=== PATIENT | male | born 1950 | race Caucasian/White ===

== ENCOUNTER → 2016-08-29 | Outpatient (CLI) | payer MEDICARE, OTHER ==
[~2016-08-29] MED LIST: CEPH250C PO; GLUCTAB OR; IBUP400T20 PO; IRBE150T49 PO
[2016-08-29 12:48] LABS: AUTOMATED NEUTROPHIL # 4.4 TH/MM3 (1.8-7.7); BASOPHIL % 0.7 % (0.0-2.0); EOSINOPHIL # 0.1 TH/MM3 (0-0.4); EOSINOPHIL % 1.9 % (0.0-4.0); HEMATOCRIT 40.9 % (39.0-51.0); HEMO FLAGS DIFF FINAL; LYMPHOCYTE # 1.6 TH/MM3 (1.0-4.8); MEAN CELL VOLUME 90.5 FL (80.0-100.0); MEAN CORPUSCULAR HEMOGLOBIN 30.6 PG (27.0-34.0); MEAN CORPUSCULAR HGB CONC 33.8 % (32.0-36.0); MONO % 5.9 % (0.0-8.0); NEUT % 67.5 % (16.0-70.0); PLATELET COUNT 240 TH/MM3 (150-450); RED BLOOD COUNT 4.52 MIL/MM3 (4.50-5.90); RED CELL DISTRIBUTION WIDTH 13.4 % (11.6-17.2); WHITE BLOOD COUNT 6.6 TH/MM3 (4.0-11.0)
[2016-08-29 13:09] LABS: ALT (GPT) 25 U/L (12-78); ANION GAP 8 MEQ/L (5-15); AST (GOT) 14 U/L (15-37); BICARBONATE 24.7 MEQ/L (21.0-32.0); BLOOD UREA NITROGEN 15 MG/DL (7-18); CHLORIDE 104 MEQ/L (98-107); GLOMERULAR FILTRATION RATE 77 ML/MIN (>89); GLUCOSE,FASTING 187 MG/DL (74-99); POTASSIUM 4.5 MEQ/L (3.5-5.1); SODIUM (NA) 137 MEQ/L (136-145)
[2016-08-29 13:19] LABS: ALKALINE PHOSPHATASE 89 U/L (45-117); HDL CHOLESTEROL 40.6 MG/DL (40.0-60.0); LDL CHOLESTEROL 116 MG/DL (0-99); TOTAL BILIRUBIN ADULT 0.8 MG/DL (0.2-1.0)
[2016-08-29 16:51] LABS: HEMOGLOBIN A1a 1.1 %; HEMOGLOBIN A1b 2.4 %; HEMOGLOBIN Ao 80.3 %; HEMOGLOBIN LA1C 2.9 %; HEMOGLOBIN P3 4.6 %
== END ==
LOC: PLAB 09:52
PROVIDERS: ATTEND Family Medicine
DX: E78.5 Hyperlipidemia, unspecified (principal); I10 Essential (primary) hypertension; E11.9 Type 2 diabetes mellitus without complications
CPT/HCPCS: 36415; 80053; 80061; 83036; 84443; 85025

== ENCOUNTER → 2016-12-04 | Outpatient (CLI) | payer MEDICARE, OTHER | LOC: PLAB 08:36 | PROVIDERS: ATTEND Urology | DX: R97.20 Elevated prostate specific antigen [PSA] (principal); E29.1 Testicular hypofunction | CPT/HCPCS: 36415; 84153; 84402; 84403; 85014 ==

== ENCOUNTER 2017-02-17 14:36 | Inpatient (IN) | payer MEDICARE, OTHER ==
[2017-02-17] VITALS (10 sets, daily range): BP systolic 124–171; BP diastolic 69–95; PULSE 58–104; RESP 16–20; TEMP 97.8–97.9; O2SAT 95–100
[2017-02-17] MEDS ORDERED: IRBE150T49 PO (14:49)
[2017-02-17] MEDS ORDERED: ASPI81CH37 CHEW (14:49)
[2017-02-17] MEDS ORDERED: GLIM4TAB PO (14:49)
[2017-02-17] MEDS ORDERED: METF500T PO (14:49)
--- NOTE | 2017-02-17 15:14 | PD ---
HPI Chief Complaint: Chest Pain Time Seen by Provider: 14:56 Travel History International Travel<30 days: No Contact w/Intl Traveler<30days: No Traveled to known affect area: No History of Present Illness HPI This 66-year-old male presents with complaint of chest pain and shortness of breath. He has noted gradually increasing shortness of breath over a period of several weeks. The past 2-3 days he has had several episodes of right-sided chest pain. He has not noted that the pain is pleuritic. It is fairly persistent at times. He says it lasted all night the other night. He had an episode earlier today that lasted a couple of hours. He was able to go to the gym and exercise He has not been coughing. He has no known history of heart disease. He does have hypertension and diabetes. He is on pravastatin. He has macular degeneration. He stopped smoking 7 or 8 years ago. He says he had a stress test several years ago which he believes was normal. He did have an ultrasound of his abdomen done recently which apparently have a spot on his liver. He has a history of hepatitis. PFSH Past Medical History High Cholesterol: Yes Diabetes: Yes (Type 2) Patient Takes Glucophage: Yes Hypertension: Yes Tetanus Vaccination: > 5 Years Influenza Vaccination: No Past Surgical History Appendectomy: Yes Oral Surgery: Yes Other Surgery: Yes (Hernia repair ) Social History Alcohol Use: Yes (5 days per week) Tobacco Use: No Substance Use: No Allergies-Medications (Allergen,Severity, Reaction): Coded Allergies: No Known Allergies (Verified , 02/17/17) Reported Meds & Prescriptions Reported Meds & Active Scripts Active Reported Aspirin Low Dose (Aspirin) 81 Mg Chew 81 Mg CHEW DAILY Glimepiride 4 Mg Tab 4 Mg PO BIDAC Metformin (Metformin HCl) 500 Mg Tab 750 Mg PO BIDPC With meals Avapro (Irbesartan) 150 Mg Tab 150 Mg PO DAILY Review of Systems General / Constitutional: No: Fever, Chills Eyes: No: Diploplia, Blurred Vision HENT: No: Headaches, Vertigo Cardiovascular: Positive: Chest Pain or Discomfort, Dyspnea on exertion, No: Palpitations, Irregular Rhythm, Edema Respiratory: Positive: Shortness of Breath, No: Cough, Wheezing, Hemoptysis Gastrointestinal: No: Vomiting, Diarrhea Genitourinary: No: Urgency, Frequency Musculoskeletal: No: Myalgias, Arthralgias Skin: No Rash, No Itching Neurologic: No: Weakness, Dizziness Hematologic/Lymphatic: No: Easy Bruising Physical Exam Narrative GENERAL: Well-developed male SKIN: Focused skin assessment warm/dry. HEAD: Atraumatic. Normocephalic. EYES: Pupils equal and round. No scleral icterus. No injection or drainage. ENT: No nasal bleeding or discharge. Mucous membranes pink and moist. NECK: Trachea midline. No JVD. CARDIOVASCULAR: Regular rate and rhythm. No murmur appreciated. RESPIRATORY: No accessory muscle use. There are diminished breath sounds in the right chest GASTROINTESTINAL: Abdomen soft, non-tender, nondistended. Hepatic and splenic margins not palpable. MUSCULOSKELETAL: No obvious deformities. No clubbing. No cyanosis. No edema. NEUROLOGICAL: Awake and alert. No obvious cranial nerve deficits. Motor grossly within normal limits. Normal speech. PSYCHIATRIC: Appropriate mood and affect; insight and judgment normal. Data Data Last Documented VS Vital Signs Date Time Temp Pulse Resp B/P Pulse Ox O2 Delivery O2 Flow Rate FiO2 02/17/17 15:50 76 16 132/69 99 Room Air 02/17/17 14:41 97.9 Orders Complete Blood Count With Diff (02/17/17 15:07) Comprehensive Metabolic Panel (02/17/17 15:07) Troponin I (02/17/17 15:07) B-Type Natriuretic Peptide (02/17/17 15:07) Prothrombin Time / Inr (Pt) (02/17/17 15:07) Act Partial Throm Time (Ptt) (02/17/17 15:07) Urinalysis - C+S If Indicated (02/17/17 15:07) Magnesium (Mg) (02/17/17 15:07) Chest, Single Ap (02/17/17 15:07) Ct Pulmonary Angiogram (02/17/17 15:43) Labs Laboratory Tests Test 02/17/17 15:00 White Blood Count 9.8 TH/MM3 Red Blood Count 5.17 MIL/MM3 Hemoglobin 15.3 GM/DL Hematocrit 45.7 % Mean Corpuscular Volume 88.4 FL Mean Corpuscular Hemoglobin 29.6 PG Mean Corpuscular Hemoglobin 33.5 % Concent Red Cell Distribution Width 12.6 % Platelet Count 239 TH/MM3 Mean Platelet Volume 9.2 FL Neutrophils (%) (Auto) 75.3 % Lymphocytes (%) (Auto) 16.9 % Monocytes (%) (Auto) 5.9 % Eosinophils (%) (Auto) 1.6 % Basophils (%) (Auto) 0.3 % Neutrophils # (Auto) 7.4 TH/MM3 Lymphocytes # (Auto) 1.6 TH/MM3 Monocytes # (Auto) 0.6 TH/MM3 Eosinophils # (Auto) 0.2 TH/MM3 Basophils # (Auto) 0.0 TH/MM3 CBC Comment DIFF FINAL Differential Comment Prothrombin Time 11.0 SEC Prothromb Time International 1.0 RATIO Ratio Activated Partial 29.1 SEC Thromboplast Time Sodium Level 137 MEQ/L Potassium Level 4.1 MEQ/L Chloride Level 103 MEQ/L Carbon Dioxide Level 23.5 MEQ/L Anion Gap 11 MEQ/L Blood Urea Nitrogen 20 MG/DL Creatinine 1.10 MG/DL Estimat Glomerular Filtration 67 ML/MIN Rate Random Glucose 243 MG/DL Calcium Level 9.1 MG/DL Magnesium Level 1.9 MG/DL Total Bilirubin 0.5 MG/DL Aspartate Amino Transf 45 U/L (AST/SGOT) Alanine Aminotransferase 36 U/L (ALT/SGPT) Alkaline Phosphatase 121 U/L Total Protein 7.4 GM/DL Albumin 3.8 GM/DL [facility] Medical Decision Making Medical Screen Exam Complete: Yes Emergency Medical Condition: Yes Medical Record Reviewed: Yes Differential Diagnosis Differential includes coronary artery disease, pleural effusion, pulmonary embolus Narrative Course EKG shows normal sinus rhythm. Chest x-rays read as normal. Patient is having right-sided chest pain and dyspnea. A CTA will be obtained to assess for possible pulmonary embolus. Diagnosis Primary Impression: Chest pain Qualified Code: R07.9 - Chest pain, unspecified type Rocky Finney MD Feb 17, 2017 15:14
[2017-02-17 15:30] LABS: AUTOMATED NEUTROPHIL # 7.4 TH/MM3 (1.8-7.7); BASOPHIL % 0.3 % (0.0-2.0); EOSINOPHIL # 0.2 TH/MM3 (0-0.4); EOSINOPHIL % 1.6 % (0.0-4.0); HEMATOCRIT 45.7 % (39.0-51.0); HEMO FLAGS DIFF FINAL; LYMPH % 16.9 % (9.0-44.0); LYMPHOCYTE # 1.6 TH/MM3 (1.0-4.8); MEAN CELL VOLUME 88.4 FL (80.0-100.0); MEAN CORPUSCULAR HEMOGLOBIN 29.6 PG (27.0-34.0); MEAN CORPUSCULAR HGB CONC 33.5 % (32.0-36.0); MONO % 5.9 % (0.0-8.0); NEUT % 75.3 % (16.0-70.0); PLATELET COUNT 239 TH/MM3 (150-450); RED BLOOD COUNT 5.17 MIL/MM3 (4.50-5.90); RED CELL DISTRIBUTION WIDTH 12.6 % (11.6-17.2); WHITE BLOOD COUNT 9.8 TH/MM3 (4.0-11.0)
--- NOTE | 2017-02-17 15:36 | RADRPT ---
EXAM DATE/TIME: 02/17/2017 15:16 [place] COMPARISON: No previous studies available for comparison. INDICATIONS : Chest pain. MEDICAL HISTORY : None. SURGICAL HISTORY : None. ENCOUNTER: Initial ACUITY: 2 weeks PAIN SCORE: 4/10 LOCATION: Right chest FINDINGS: A single view of the chest demonstrates the lungs to be symmetrically aerated without evidence of mas s, infiltrate or effusion. The cardiomediastinal contours are unremarkable. Osseous structures are intact. CONCLUSION: 1. No acute cardiopulmonary disease. Sonido Zapata MD on February 17, 2017 at 15:35 Board Certified Radiologist. This report was verified electronically.
[2017-02-17 15:48] LABS: CHLORIDE 103 MEQ/L (98-107); POTASSIUM 4.1 MEQ/L (3.5-5.1); SODIUM (NA) 137 MEQ/L (136-145)
[2017-02-17 15:52] LABS: ANION GAP 11 MEQ/L (5-15); APTT (PATIENT) 29.1 SEC (24.3-30.1); BICARBONATE 23.5 MEQ/L (21.0-32.0); BLOOD UREA NITROGEN 20 MG/DL (7-18); MAGNESIUM 1.9 MG/DL (1.5-2.5)
[2017-02-17 15:55] LABS: ALT (GPT) 36 U/L (12-78); AST (GOT) 45 U/L (15-37); GLOMERULAR FILTRATION RATE 67 ML/MIN (>89)
[2017-02-17 15:57] LABS: TOTAL BILIRUBIN ADULT 0.5 MG/DL (0.2-1.0)
[2017-02-17 15:58] LABS: ALKALINE PHOSPHATASE 121 U/L (45-117)
[2017-02-17 16:05] LABS: BLOOD, URINE NEG (NEG); GLUCOSE,URINE NEG (NEG); KETONE, URINE 40 mg/dL (NEG); NITRITE,URINE NEG (NEG); PH, URINE 5.5 (5.0-8.5)
[2017-02-17] MEDS ORDERED: NITROGLYCERIN 2% OINT 1 GM PACKET TOPICAL ONE (16:15)
[2017-02-17] MEDS ORDERED: ASPIRIN 81 MG CHEW TAB CHEW ONE ×3 (16:15→16:45)
[2017-02-17 16:19] LABS: URINE COLOR YELLOW (YELLW/STRAW)
--- NOTE | 2017-02-17 16:19 | PD ---
Physical Exam Date Seen by Provider: Feb 17, 2017 Narrative Care was assumed from Dr. Elizondo at 4 PM. The patient presented with chest pain and shortness of breath. The patient reports increasing shortness of breath for the last several weeks. He reports stuttering chest pain for the last 3 days. His worst chest pain was actually 2 nights ago. It kept him up all night. He went to the [facility] today and developed chest pain following exercise at the . He subsequently presented to us for further evaluation. He is having no pain at present. Data Data Last Documented VS Vital Signs Date Time Temp Pulse Resp B/P Pulse Ox O2 Delivery O2 Flow Rate FiO2 02/17/17 15:50 76 16 132/69 99 Room Air 02/17/17 14:41 97.9 Orders Complete Blood Count With Diff (02/17/17 15:07) Comprehensive Metabolic Panel (02/17/17 15:07) Troponin I (02/17/17 15:07) B-Type Natriuretic Peptide (02/17/17 15:07) Prothrombin Time / Inr (Pt) (02/17/17 15:07) Act Partial Throm Time (Ptt) (02/17/17 15:07) Urinalysis - C+S If Indicated (02/17/17 15:07) Magnesium (Mg) (02/17/17 15:07) Chest, Single Ap (02/17/17 15:07) Aspirin Chew (Aspirin Chew) (02/17/17 16:15) Nitroglycerin 2% Oint (Nitroglycerin 2% (02/17/17 16:15) Admit To Inpatient (02/17/17 ) Ckmb (Isoenzyme) Profile (02/17/17 16:31) Ckmb (Isoenzyme) Profile (02/17/17 22:31) Ckmb (Isoenzyme) Profile (02/18/17 04:31) Troponin I (02/17/17 16:31) Troponin I (02/17/17 22:31) Troponin I (02/18/17 04:31) Diet Npo Except Meds (02/17/17 Dinner) Resp Oxygen Nasal Cannula (02/17/17 ) Sodium Chloride 0.9% Flush (Ns Flush) (02/17/17 21:00) Sodium Chloride 0.9% Flush (Ns Flush) (02/17/17 16:45) Aspirin Ec (Ecotrin Ec) (02/18/17 09:00) Nitroglycerin Sl (Nitrostat Sl) (02/17/17 16:45) Acetaminophen (Tylenol) (02/17/17 16:45) Ondansetron Inj (Zofran Inj) (02/17/17 16:45) Vital Signs (Adult) ANSELMO.Q4H (02/17/17 16:31) Consult Cardiology (02/17/17 ) Garden Equipment Mechanic / Telemetry ANSELMO.Q8H (02/17/17 16:31) Metoprolol Tartrate (Lopressor) (02/17/17 21:00) Heparin Infusion ANSELMO.Q1H (02/17/17 16:31) Heparin-D5w Inj (Heparin-D5w Inj) (02/17/17 16:45) Act Partial Throm Time (Ptt) (02/17/17 16:31) Cbc No Diff, Includes Plts (02/17/17 16:31) Cbc No Diff, Includes Plts (02/20/17 06:00) Act Partial Throm Time (Ptt) (02/17/17 23:31) Occult Blood (Hemoccult) Stool (02/17/17 16:31) Morphine Inj (Morphine Inj) (02/17/17 16:45) Urine Culture (02/17/17 15:20) Pill Splitter (Pill Splitter) (02/17/17 16:45) Admit Order (Ed Use Only) (02/17/17 16:42) Aspirin Chew (Aspirin Chew) (02/17/17 16:45) Aspirin Chew (Aspirin Chew) (02/17/17 16:45) Labs Laboratory Tests Test 02/17/17 02/17/17 15:00 15:20 White Blood Count 9.8 TH/MM3 Red Blood Count 5.17 MIL/MM3 Hemoglobin 15.3 GM/DL Hematocrit 45.7 % Mean Corpuscular Volume 88.4 FL Mean Corpuscular Hemoglobin 29.6 PG Mean Corpuscular Hemoglobin 33.5 % Concent Red Cell Distribution Width 12.6 % Platelet Count 239 TH/MM3 Mean Platelet Volume 9.2 FL Neutrophils (%) (Auto) 75.3 % Lymphocytes (%) (Auto) 16.9 % Monocytes (%) (Auto) 5.9 % Eosinophils (%) (Auto) 1.6 % Basophils (%) (Auto) 0.3 % Neutrophils # (Auto) 7.4 TH/MM3 Lymphocytes # (Auto) 1.6 TH/MM3 Monocytes # (Auto) 0.6 TH/MM3 Eosinophils # (Auto) 0.2 TH/MM3 Basophils # (Auto) 0.0 TH/MM3 CBC Comment DIFF FINAL Differential Comment Prothrombin Time 11.0 SEC Prothromb Time International 1.0 RATIO Ratio Activated Partial 29.1 SEC Thromboplast Time Sodium Level 137 MEQ/L Potassium Level 4.1 MEQ/L Chloride Level 103 MEQ/L Carbon Dioxide Level 23.5 MEQ/L Anion Gap 11 MEQ/L Blood Urea Nitrogen 20 MG/DL Creatinine 1.10 MG/DL Estimat Glomerular Filtration 67 ML/MIN Rate Random Glucose 243 MG/DL Calcium Level 9.1 MG/DL Magnesium Level 1.9 MG/DL Total Bilirubin 0.5 MG/DL Aspartate Amino Transf 45 U/L (AST/SGOT) Alanine Aminotransferase 36 U/L (ALT/SGPT) Alkaline Phosphatase 121 U/L Troponin I 3.14 NG/ML Total Protein 7.4 GM/DL Albumin 3.8 GM/DL Urine Color YELLOW Urine Turbidity CLEAR Urine pH 5.5 Urine Specific [place] GREATER THAN 1.035 Urine Protein 30 mg/dL Urine Glucose (UA) NEG mg/dL Urine Ketones 40 mg/dL Urine Occult Blood NEG Urine Nitrite NEG Urine Bilirubin NEG Urine Leukocyte Esterase SMALL Urine WBC 25-49 /hpf Urine Squamous Epithelial 0-5 /hpf Cells Urine Calcium Oxalate Crystals FEW /hpf Urine Amorphous Sediment FEW Urine Bacteria RARE /hpf Urine Mucus FEW /lpf Microscopic Urinalysis Comment CULTURE INDICATED MDM Supervised Visit with DAYANARA: No Narrative Course CBC & BMP Diagram 02/17/17 15:00 Last Impressions Chest X-Ray 02/17/17 1507 Signed Impressions: Service Date/Time: Friday, February 17, 2017 15:16 - CONCLUSION: 1. No acute cardiopulmonary disease. Sonido Zapata MD Troponin is 3.14. Cardiology has now been consult. I have ordered aspirin and Nitropaste. I have not yet ordered anticoagulation pending discussion with cardiology. The patient and his are aware of the findings. He is aware of the knee for transfer to [facility]. Critical Care Narrative Aggregate critical care time was 30 minutes. Time to perform other separately billable procedures was not included in the critical care time. My time did not include minutes spent treating any other patients simultaneously or on activities that did not directly contribute to the patient's treatment. The services I provided to this patient were to treat and/or prevent clinically significant deterioration due to NSTEMI I provided critical care services requiring my management, as noted below: Chart data review, documentation time, medication orders and management, vital sign assessments/reviewing monitor data, ordering and reviewing lab tests, ordering and interpreting/reviewing x-rays and diagnostic studies, care of the patient and discussion of the patient with the admitting physicians Physician Communication Physician Communication Dr. So will admit the patient. Dr. Carcamo, cardiology, has asked that I start heparin and metoprolol. Dr. So is actually already ordered that. The patient will be transported to [facility] to the [facility]. Diagnosis Primary Impression: Chest pain Qualified Code: R07.9 - Chest pain, unspecified type Additional Impression: NSTEMI (non-ST elevated myocardial infarction) Admitting Information Admitting Physician Requests: Admit Condition: Stable Aimee Rogers MD Feb 17, 2017 16:19
[2017-02-17 16:38] LABS: MUCUS URINE FEW /lpf (OCC)
[2017-02-17 16:39] LABS: BACTERIA, URINE RARE /hpf; CALCIUM OXALATE CRYSTALS,URINE FEW /hpf; SQUAMOUS EPITHELIAL CELL URINE 0-5 /hpf (0-5)
[2017-02-17 16:40] LABS: COMMENT (UR) CULTURE INDICATED; CULTURE IF INDICATED CULTURE INDICATED
[2017-02-17] MEDS ORDERED: ONDANSETRON HCL 4 MG/2 ML VIAL IV PRN (16:45)
[2017-02-17] MEDS ORDERED: ACETAMINOPHEN 325 MG TAB PO PRN (16:45)
[2017-02-17] MEDS ORDERED: MORPHINE SULFATE 8 MG/ML INJ IV PUSH PRN (16:45)
[2017-02-17] MEDS ORDERED: NITROGLYCERIN 0.4 MG SL 25 TABS/BTL SL PRN (16:45)
[2017-02-17] MEDS ORDERED: SODIUM CHLORIDE 0.9% FLUSH 10 ML FLUSH IV FLUSH PRN (16:45)
[2017-02-17] MEDS ORDERED: PILL SPLITTER OTHER PRN (16:45)
[2017-02-17] MEDS: HEPARIN-D5W INJ 250 ML IV SCH (16:55)
[2017-02-17] MEDS ORDERED: GLUCAGON 1 MG/ML VIAL OTHER PRN (17:15)
[2017-02-17] MEDS ORDERED: DEXTROSE 50% IN WATER 50 ML VIAL(D50) IV PRN (17:15)
--- NOTE | 2017-02-17 17:19 | HHI.HP ---
[facility] Service [facility] Primary Care Physician Nikolas Petersen MD Admission Diagnosis NSTEMI Diagnoses: Chief Complaint: Chest pain Travel History International Travel<30 Days: No Contact w/Intl Traveler <30 Da: No Traveled to Known Affected Are: No History of Present Illness This patient is a 89-year-old gentleman who admits just under week increased dyspnea on exertion and shortness of breath and 2-3 days of increasing right sided chest pain which was severe today. Patient said these symptoms subsided with rest. He went to the gym today and try to do his usual routine and had reoccurrence of chest pain. Patient did come to the emergency room for further evaluation (after his primary doctor referred him) and was found to have elevated troponins without EKG changes consistent with ischemia. Patient's pain has resolved with aspirin and Nitropaste. Patient normally takes a baby aspirin every day. He has been admitted to the medical team for further evaluation by cardiology for non-ST elevation FL Review of Systems Constitutional: DENIES: Diaphoretic episodes, Fatigue, Fever, Weight gain, Weight loss, Chills, Dizziness, Change in appetite, Night Sweats Endocrine: DENIES: Heat/cold intolerance, Polydipsia, Polyuria, Polyphagia Eyes: DENIES: Blurred vision, Diplopia, Eye inflammation, Eye pain, Vision loss , Photosensitivity, Double Vision Ears, nose, mouth, throat: DENIES: Tinnitus, Hearing loss, Vertigo, Nasal discharge, Oral lesions, Throat pain, Hoarseness, Ear Pain, Running Nose, Epistaxis, Sinus Pain, Toothache, Odynophagia Respiratory: COMPLAINS OF: Shortness of breath, DENIES: Apneas, Cough, Snoring , Wheezing, Hemoptysis, Sputum production Cardiovascular: COMPLAINS OF: Chest pain, Dyspnea on Exertion Gastrointestinal: DENIES: Abdominal pain, Black stools, Bloody stools, Constipation, Diarrhea, Nausea, Vomiting, Difficulty Swallowing, Anorexia Genitourinary: DENIES: Sexual dysfunction, Urinary frequency, Urinary incontinence, Urgency, Hematuria, Dysuria, Nocturia, Penile Discharge, Testicular Pain, Testicular Swelling Musculoskeletal: DENIES: Joint pain, Muscle aches, Stiffness, Joint Swelling, Back pain, Neck pain Integumentary: DENIES: Abnormal pigmentation, Nail changes, Pruritus, Rash Hematologic/lymphatic: DENIES: Bruising, Lymphadenopathy Immunologic/allergic: DENIES: Eczema, Urticaria Neurologic: DENIES: Abnormal gait, Headache, Localized weakness, Paresthesias, Seizures, Speech Problems, Tremor, Poor Balance Psychiatric: DENIES: Anxiety, Confusion, Mood changes, Depression, Hallucinations, Agitation, Suicidal Ideation, Homicidal Ideation, Delusions Past Family Social History Past Medical History Diabetes Hypertension Past Surgical History Hernia repair Appendectomy Reported Medications Reviewed in the medical record Allergies: Coded Allergies: No Known Allergies (Verified , 02/17/17) Active Ordered Medications Reviewed in the medical record Family History Father may have had heart disease Social History No tobacco dependency, , lives with his Physical Exam Vital Signs Vital Signs Date Time Temp Pulse Resp B/P Pulse Ox O2 Delivery O2 Flow Rate FiO2 02/17/17 15:50 76 16 132/69 99 Room Air 02/17/17 14:50 82 18 96 Room Air 02/17/17 14:41 97.9 93 20 142/86 96 Physical Exam GENERAL: This is a well-nourished, well-developed patient, in no apparent distress. SKIN: No rashes, ecchymoses or lesions. Cool and dry. HEAD: Atraumatic. Normocephalic. No temporal or scalp tenderness. EYES: Pupils equal round and reactive. Extraocular motions intact. No scleral icterus. No injection or drainage. ENT: Nose without bleeding, purulent drainage or septal hematoma. Throat without erythema, tonsillar hypertrophy or exudate. Uvula midline. Airway patent. NECK: Trachea midline. No JVD or lymphadenopathy. Supple, nontender, no meningeal signs. CARDIOVASCULAR: Regular rate and rhythm without murmurs, gallops, or rubs. RESPIRATORY: Clear to auscultation. Breath sounds equal bilaterally. No wheezes , rales, or rhonchi. GASTROINTESTINAL: Abdomen soft, non-tender, nondistended. No hepato-splenomegaly , or palpable masses. No guarding. MUSCULOSKELETAL: Extremities without clubbing, cyanosis, or edema. No joint tenderness, effusion, or edema noted. No calf tenderness. Negative Homans sign bilaterally. NEUROLOGICAL: Awake and alert. Cranial nerves II through XII intact. Motor and sensory grossly within normal limits. Five out of 5 muscle strength in all muscle groups. Normal speech. Laboratory Laboratory Tests Test 02/17/17 02/17/17 15:00 15:20 White Blood Count 9.8 Red Blood Count 5.17 Hemoglobin 15.3 Hematocrit 45.7 Mean Corpuscular Volume 88.4 Mean Corpuscular Hemoglobin 29.6 Mean Corpuscular Hemoglobin 33.5 Concent Red Cell Distribution Width 12.6 Platelet Count 239 Mean Platelet Volume 9.2 Neutrophils (%) (Auto) 75.3 Lymphocytes (%) (Auto) 16.9 Monocytes (%) (Auto) 5.9 Eosinophils (%) (Auto) 1.6 Basophils (%) (Auto) 0.3 Neutrophils # (Auto) 7.4 Lymphocytes # (Auto) 1.6 Monocytes # (Auto) 0.6 Eosinophils # (Auto) 0.2 Basophils # (Auto) 0.0 CBC Comment DIFF FINAL Differential Comment Prothrombin Time 11.0 Prothromb Time International 1.0 Ratio Activated Partial 29.1 Thromboplast Time Sodium Level 137 Potassium Level 4.1 Chloride Level 103 Carbon Dioxide Level 23.5 Anion Gap 11 Blood Urea Nitrogen 20 Creatinine 1.10 Estimat Glomerular Filtration 67 Rate Random Glucose 243 Calcium Level 9.1 Magnesium Level 1.9 Total Bilirubin 0.5 Aspartate Amino Transf 45 (AST/SGOT) Alanine Aminotransferase 36 (ALT/SGPT) Alkaline Phosphatase 121 Troponin I 3.14 Total Protein 7.4 Albumin 3.8 Urine Color YELLOW Urine Turbidity CLEAR Urine pH 5.5 Urine Specific [place] GREATER THAN 1.035 Urine Protein 30 Urine Glucose (UA) NEG Urine Ketones 40 Urine Occult Blood NEG Urine Nitrite NEG Urine Bilirubin NEG Urine Leukocyte Esterase SMALL Urine WBC 25-49 Urine Squamous Epithelial 0-5 Cells Urine Calcium Oxalate Crystals FEW Urine Amorphous Sediment FEW Urine Bacteria RARE Urine Mucus FEW Microscopic Urinalysis Comment CULTURE INDICATED Date/Time Procedure Status Source Growth 02/17/17 15:20 Urine Culture Received Urine Clean Catch Pending Result Diagram: 02/17/17 1500 02/17/17 1500 Imaging Last Impressions Chest X-Ray 02/17/17 1507 Signed Impressions: Service Date/Time: Friday, February 17, 2017 15:16 - CONCLUSION: 1. No acute cardiopulmonary disease. Sonido Zapata MD Assessment and Plan Problem List: (1) NSTEMI (non-ST elevated myocardial infarction) ICD Code: I21.4 Status: Acute Plan: Patient with risk factors including diabetes, age and possible family history. Continue with beta ming, heparin, nitroglycerin, oxygen, aspirin Patient will need cardiac catheterization Cardiology aware (2) DM2 (diabetes mellitus, type 2) ICD Code: E11.9 Status: Acute Plan: We'll hold metformin for now Continue with sliding scale insulin and ADA diet (3) HTN (hypertension) ICD Code: I10 Status: Acute Plan: Continue ARB, will follow while on additional beta ming Currently controlled Assessment and Plan Plan of care to be determined by Hospital course Code Status Full code Discussed Condition With Patient, ER M.D., spouse, emergency room RN Physician Certification 2 Midnight Certification Type: Admission for Inpatient Services Order for Inpatient Services The services are ordered in accordance with Medicare regulations or non- Medicare payer requirements, as applicable. In the case of services not specified as inpatient-only, they are appropriately provided as inpatient services in accordance with the 2-midnight benchmark. Estimated LOS (days): 3 3 days is the estimated time the patient will need to remain in the hospital, assuming treatment plan goals are met and no additional complications. Post-Hospital Plan: Jhoana Rogers MD Feb 17, 2017 17:19
[2017-02-17] MEDS: METOPROLOL TARTRATE 25 MG TAB PO SCH (21:14)
[2017-02-17] MEDS: SODIUM CHLORIDE 0.9% FLUSH 10 ML FLUSH IV FLUSH SCH (21:14)
[2017-02-17 22:05] LABS: HEMATOCRIT 42.2 % (39.0-51.0); MEAN CELL VOLUME 90.3 FL (80.0-100.0); MEAN CORPUSCULAR HEMOGLOBIN 30.4 PG (27.0-34.0); MEAN CORPUSCULAR HGB CONC 33.6 % (32.0-36.0); PLATELET COUNT 221 TH/MM3 (150-450); RED BLOOD COUNT 4.68 MIL/MM3 (4.50-5.90); RED CELL DISTRIBUTION WIDTH 13.2 % (11.6-17.2); REVIEW FLAG FINAL; WHITE BLOOD COUNT 8.4 TH/MM3 (4.0-11.0)
[2017-02-17 22:25] LABS: APTT (PATIENT) 31.8 SEC (24.3-30.1)
[2017-02-17 22:31] LABS: CREATINE KINASE 169 U/L (39-308)
[2017-02-17 22:50] LABS: CKMB 9.9 NG/ML (0.5-3.6)
[2017-02-18] VITALS (23 sets, daily range): BP systolic 102–156; BP diastolic 54–89; PULSE 53–90; RESP 16–18; TEMP 97–98; O2SAT 95–99
[2017-02-18 06:39] LABS: APTT (PATIENT) 33.4 SEC (24.3-30.1)
[2017-02-18 07:41] LABS: CREATINE KINASE 150 U/L (39-308)
[2017-02-18] MEDS: METOPROLOL TARTRATE 25 MG TAB PO SCH (08:55)
[2017-02-18] MEDS: SODIUM CHLORIDE 0.9% FLUSH 10 ML FLUSH IV FLUSH SCH (08:56)
[2017-02-18] MEDS ORDERED: ASPIRIN EC 325 MG TABEC PO SCH (09:00)
--- NOTE | 2017-02-18 10:51 | PD.PN.STU ---
Subjective Remarks Patient is a 66 year old male with hx of diabetes, hypertension, and 40pack/yr smoking, presenting 02/17 to [facility] with 3 day history of progressively worse vague exertional upper right chest pain accompanied with sob. Symptoms reolved with rest. EKG on presentation showed no evidence of STEMI; initial troponin notable for 3.14. nSTEMI criteria met, cardiac catheterization with possible intervention by Dr. Carcamo planned for today at 14:30. Patient does not note any pain currently. Objective Vitals Vital Signs Date Time Temp Pulse Resp B/P Pulse Ox O2 Delivery O2 Flow Rate FiO2 02/18/17 10:04 63 02/18/17 09:49 95 21 02/18/17 09:02 74 02/18/17 08:21 62 02/18/17 08:21 97.5 72 18 135/84 98 02/18/17 05:00 61 02/18/17 04:00 97.7 66 16 119/69 98 02/18/17 03:00 56 02/18/17 02:00 57 02/18/17 01:00 62 02/18/17 00:00 53 02/18/17 00:00 97.8 58 18 102/54 96 02/17/17 23:55 95 02/17/17 23:00 58 02/17/17 22:00 60 02/17/17 21:00 60 02/17/17 21:00 62 02/17/17 21:00 97.8 104 20 143/81 96 02/17/17 18:00 82 16 124/76 100 Room Air 02/17/17 17:30 85 16 140/72 99 Room Air 02/17/17 17:00 78 18 159/75 100 Room Air 02/17/17 16:30 74 16 171/95 98 Room Air 02/17/17 15:50 76 16 132/69 99 Room Air 02/17/17 14:50 82 18 96 Room Air 02/17/17 14:41 97.9 93 20 142/86 96 I/O 02/17/17 02/17/17 02/17/17 02/18/17 02/18/17 02/18/17 07:00 15:00 23:00 07:00 15:00 23:00 Intake Total 52 ml Balance 52 ml Intake Oral 0 ml IV Total 52 ml # Voids 1 # Bowel Movements 0 Result Diagram: 02/17/17 2126 02/17/17 1500 Other Results Laboratory Tests Test 02/17/17 02/17/17 02/17/17 02/18/17 15:00 15:20 21:26 04:50 White Blood Count 9.8 TH/MM3 8.4 TH/MM3 (4.0-11.0) (4.0-11.0) Red Blood Count 5.17 MIL/MM3 4.68 MIL/MM3 (4.50-5.90) (4.50-5.90) Hemoglobin 15.3 GM/DL 14.2 GM/DL (13.0-17.0) (13.0-17.0) Hematocrit 45.7 % 42.2 % (39.0-51.0) (39.0-51.0) Mean Corpuscular Volume 88.4 FL 90.3 FL (80.0-100.0) (80.0-100.0) Mean Corpuscular Hemoglobin 29.6 PG 30.4 PG (27.0-34.0) (27.0-34.0) Mean Corpuscular Hemoglobin 33.5 % 33.6 % Concent (32.0-36.0) (32.0-36.0) Red Cell Distribution Width 12.6 % 13.2 % (11.6-17.2) (11.6-17.2) Platelet Count 239 TH/MM3 221 TH/MM3 (150-450) (150-450) Mean Platelet Volume 9.2 FL 9.2 FL (7.0-11.0) (7.0-11.0) Neutrophils (%) (Auto) 75.3 % (16.0-70.0) Lymphocytes (%) (Auto) 16.9 % (9.0-44.0) Monocytes (%) (Auto) 5.9 % (0.0-8.0) Eosinophils (%) (Auto) 1.6 % (0.0-4.0) Basophils (%) (Auto) 0.3 % (0.0-2.0) Neutrophils # (Auto) 7.4 TH/MM3 (1.8-7.7) Lymphocytes # (Auto) 1.6 TH/MM3 (1.0-4.8) Monocytes # (Auto) 0.6 TH/MM3 (0-0.9) Eosinophils # (Auto) 0.2 TH/MM3 (0-0.4) Basophils # (Auto) 0.0 TH/MM3 (0-0.2) CBC Comment DIFF FINAL Differential Comment Prothrombin Time 11.0 SEC (9.8-11.6) Prothromb Time International 1.0 RATIO Ratio Activated Partial 29.1 SEC 31.8 SEC 33.4 SEC Thromboplast Time (24.3-30.1) (24.3-30.1) (24.3-30.1) Sodium Level 137 MEQ/L (136-145) Potassium Level 4.1 MEQ/L (3.5-5.1) Chloride Level 103 MEQ/L (98-107) Carbon Dioxide Level 23.5 MEQ/L (21.0-32.0) Anion Gap 11 MEQ/L (5-15) Blood Urea Nitrogen 20 MG/DL (7-18) Creatinine 1.10 MG/DL (0.60-1.30) Estimat Glomerular Filtration 67 ML/MIN (>89) Rate Random Glucose 243 MG/DL (74-106) Calcium Level 9.1 MG/DL (8.5-10.1) Magnesium Level 1.9 MG/DL (1.5-2.5) Total Bilirubin 0.5 MG/DL (0.2-1.0) Aspartate Amino Transf 45 U/L (15-37) (AST/SGOT) Alanine Aminotransferase 36 U/L (12-78) (ALT/SGPT) Alkaline Phosphatase 121 U/L (45-117) Troponin I 3.14 NG/ML 6.18 NG/ML 4.75 NG/ML (0.02-0.05) (0.02-0.05) (0.02-0.05) B-Type Natriuretic Peptide 88 PG/ML (0-100) Total Protein 7.4 GM/DL (6.4-8.2) Albumin 3.8 GM/DL (3.4-5.0) Urine Color YELLOW (YELLW/STRAW) Urine Turbidity CLEAR (CLEAR) Urine pH 5.5 (5.0-8.5) Urine Specific [place] GREATER THAN 1.035 (1.002-1.035) Urine Protein 30 mg/dL (NEG-TRACE) Urine Glucose (UA) NEG mg/dL (NEG) Urine Ketones 40 mg/dL (NEG) Urine Occult Blood NEG (NEG) Urine Nitrite NEG (NEG) Urine Bilirubin NEG (NEG) Urine Leukocyte Esterase SMALL (NEG) Urine WBC 25-49 /hpf (0-5) Urine Squamous Epithelial 0-5 /hpf (0-5) Cells Urine Calcium Oxalate Crystals FEW /hpf (NONE) Urine Amorphous Sediment FEW Urine Bacteria RARE /hpf (NONE) Urine Mucus FEW /lpf (OCC) Microscopic Urinalysis Comment CULTURE INDICATED Total Creatine Kinase 169 U/L 150 U/L (39-308) (39-308) Creatine Kinase MB 9.9 NG/ML 8.0 NG/ML (0.5-3.6) (0.5-3.6) Imaging Last 72 hours Impressions Chest X-Ray 02/17/17 1507 Signed Impressions: Service Date/Time: Friday, February 17, 2017 15:16 - CONCLUSION: 1. No acute cardiopulmonary disease. Sonido Zapata MD Objective Remarks Patient resting well RRR no rubs murmurs gallops Mild wheezing bilaterally Medications and IVs Current Medications Medications (Trade) Dose Ordered Sig/Mima Route PRN Reason Start Time Stop Time Status Last Admin Dose Admin Sodium Chloride (NS Flush) 2 ml BID IV FLUSH 02/17/17 21:00 02/18/17 08:56 Sodium Chloride (NS Flush) 2 ml UNSCH PRN IV FLUSH FLUSH AFTER USING IV ACCESS 02/17/17 16:45 Aspirin (Ecotrin Ec) 325 mg DAILY PO 02/18/17 09:00 02/18/17 08:54 Nitroglycerin (Nitrostat Sl) 0.4 mg Q5M PRN SL CHEST PAIN 02/17/17 16:45 Acetaminophen (Tylenol) 650 mg Q6H PRN PO HEADACHE OR TEMP > 101 F 02/17/17 16:45 Ondansetron HCl (Zofran Inj) 4 mg Q6H PRN IV NAUSEA OR VOMITING 02/17/17 16:45 Metoprolol Tartrate 12.5 mg 12.5 mg BID PO 02/17/17 21:00 02/18/17 08:55 Heparin Sodium/ Dextrose (Heparin-D5W Inj) 250 ml @ 0 mls/hr TITRATE IV 02/17/17 16:45 02/17/17 16:55 Morphine Sulfate (Morphine Inj) 6 mg Q4H PRN IV PUSH chest pain 02/17/17 16:45 Miscellaneous (Pill Splitter) 1 ea UNSCH PRN OTHER SEE LABEL COMMENTS 02/17/17 16:45 Dextrose (D50w (Vial) Inj) 50 ml UNSCH PRN IV HYPOGLYCEMIA-SEE COMMENTS 02/17/17 17:15 Glucagon (Glucagon Inj) 1 mg UNSCH PRN OTHER HYPOGLYCEMIA-SEE COMMENTS 02/17/17 17:15 A/P Assessment and Plan Problem List: (1) NSTEMI (non-ST elevated myocardial infarction) ICD Code: I21.4 Status: Acute Plan: Patient with risk factors including diabetes, age and possible family history. Continue with beta ming, heparin, nitroglycerin, oxygen, aspirin Patient planned for cardiac cath today at 14:[address] Carcamo (2) DM2 (diabetes mellitus, type 2) ICD Code: E11.9 Status: Acute Plan: Continue with sliding scale insulin and ADA diet (3) HTN (hypertension) ICD Code: I10 Status: Acute Plan: Continue ARB, will follow while on additional beta ming Currently controlled, will likely change pending cath outcome later today. Will speak with cardiology. Mary Rabago M3 Feb 18, 2017 10:51
--- NOTE | 2017-02-18 13:58 | HHI.PR ---
Subjective Remarks Patient seen in follow-up for NSTEMI currently denies any chest pain or shortness of breath. Awaiting heart catheterization. No nausea or vomiting. Objective Vitals Vital Signs Date Time Temp Pulse Resp B/P Pulse Ox O2 Delivery O2 Flow Rate FiO2 02/18/17 13:17 76 02/18/17 12:32 67 02/18/17 11:02 60 02/18/17 11:02 97.9 58 18 120/74 97 02/18/17 10:04 63 02/18/17 09:49 95 21 02/18/17 09:02 74 02/18/17 08:21 62 02/18/17 08:21 97.5 72 18 135/84 98 02/18/17 05:00 61 02/18/17 04:00 97.7 66 16 119/69 98 02/18/17 03:00 56 02/18/17 02:00 57 02/18/17 01:00 62 02/18/17 00:00 53 02/18/17 00:00 97.8 58 18 102/54 96 02/17/17 23:55 95 02/17/17 23:00 58 02/17/17 22:00 60 02/17/17 21:00 60 02/17/17 21:00 62 02/17/17 21:00 97.8 104 20 143/81 96 02/17/17 18:00 82 16 124/76 100 Room Air 02/17/17 17:30 85 16 140/72 99 Room Air 02/17/17 17:00 78 18 159/75 100 Room Air 02/17/17 16:30 74 16 171/95 98 Room Air 02/17/17 15:50 76 16 132/69 99 Room Air 02/17/17 14:50 82 18 96 Room Air 02/17/17 14:41 97.9 93 20 142/86 96 I/O 02/17/17 02/17/17 02/17/17 02/18/17 02/18/17 02/18/17 07:00 15:00 23:00 07:00 15:00 23:00 Intake Total 52 ml Balance 52 ml Intake Oral 0 ml IV Total 52 ml # Voids 1 # Bowel Movements 0 Result Diagram: 02/17/17212502/17/17 1500 Imaging Last Impressions Chest X-Ray 02/17/17 1507 Signed Impressions: Service Date/Time: Friday, February 17, 2017 15:16 - CONCLUSION: 1. No acute cardiopulmonary disease. Sonido Zapata MD Objective Remarks GENERAL: This is a well-nourished, well-developed patient, in no apparent distress. CARDIOVASCULAR: Normal rate and regular rhythm without murmurs, gallops, or rubs. RESPIRATORY: Good respiratory efforts. Breath sounds equal and clear to auscultation bilaterally. GASTROINTESTINAL: Abdomen soft, non-tender, non-distended. Normal active bowel sounds MUSCULOSKELETAL: Extremities without cyanosis, or edema. NEURO: Alert & Oriented x4 to person, place, time, situation. Moves all ext x4 PSYCH: Appropriate mood and affect. A/P Problem List: (1) NSTEMI (non-ST elevated myocardial infarction) ICD Code: I21.4 Status: Acute Plan: Heart catheterization scheduled today with Dr. Carcamo. Continue heparin, aspirin, Lopressor Check lipids. (2) DM2 (diabetes mellitus, type 2) ICD Code: E11.9 Status: Acute Plan: Continue to hold metformin for now Continue with sliding scale insulin and ADA diet (3) HTN (hypertension) ICD Code: I10 Status: Acute Plan: Continue ARB, will follow while on additional beta ming Currently controlled Brayden Domínguez MD Feb 18, 2017 13:58
[2017-02-18 14:55] LABS: APTT (PATIENT) 36.7 SEC (24.3-30.1)
[2017-02-18] MEDS ORDERED: IOHEXOL 350 MG/ML 100 ML BTL (for Cath Lab) OTHER ONE (15:08)
[2017-02-18] MEDS ORDERED: MIDAZOLAM HCL 2 MG/2 ML VIAL ONE (15:38)
[2017-02-18] MEDS ORDERED: HEPARIN-NS/PF INJ 500 ML ONE (15:38)
[2017-02-18] MEDS ORDERED: NITROGLYCERIN INJ 5 ML ONE (15:42)
[2017-02-18] MEDS: HEPARIN-D5W INJ 250 ML IV SCH (15:45)
[2017-02-18] MEDS ORDERED: MIDAZOLAM HCL 2 MG/2 ML VIAL IV ONE ×2 (16:20→16:31)
[2017-02-18] MEDS ORDERED: HEPARIN SODIUM - IV 10,000 UNITS/10 ML VIAL ONE ×2 (16:41→16:49)
[2017-02-18] MEDS ORDERED: HEPARIN SODIUM - IV 10,000 UNITS/10 ML VIAL IV ONE ×2 (16:45→17:00)
[2017-02-18] MEDS ORDERED: TIROFIBAN INFUSION INJ 250 ML IV ONE (17:54)
[2017-02-18] MEDS ORDERED: TIROFIBAN INFUSION INJ 250 ML IV SCH (18:00)
[2017-02-18] MEDS ORDERED: TIROFIBAN IV ONE (18:00)
[2017-02-18] MEDS ORDERED: TICAGRELOR 90 MG TAB PO ONE ×2 (18:05→18:11)
--- NOTE | 2017-02-18 18:57 | CATHPROC ---
[employer] HIS Report Study Information Study Number Admission Scheduled Start Study Start [id number] Feb 17 2017 4:45PM 02/18/2017 Feb 18 2017 4:01PM Study Type [place] Service Left/Possible PCI Cardiac Catheterization Admit Source Facility Department Emergency department [facility] - Welder Assistant Physician and Clinical Staff Initial Bassem [employer] Fabiola Beckham,BSRN Other Saul, Crystal,AERIAL PHOTOGRAPHER TECH2 Recorder Billie Goodrich,CONOR TECH2 Scrub Sho, Gustavo,RT(R) Procedures Performed Procedure Location (Site) Vessel Name Angiogram LV LV Ventricle Coronary Angiograms LCA Left Coronary Coronary Angiograms RCA Right Coronary Drug Eluting Inflatio CIRC Mid CIRC Drug Eluting Inflatio CIRC Prox CIRC Drug Eluting Inflatio RCA Mid Right Coronary PTCA RCA Right Coronary PTCA CIRC Mid CIRC PTCA PDA Prox Right Coronary PTCA RCA Mid Right Coronary Wire insertion Fem Art (right) Femoral Art Equipment Time Burr Sander Description Size Mfg Part Number Used/Scraped WIRE, BALANCE MIDDLEWEIGHT [id number] 16:47 [employer] 190CM Used 190CM *[id number] WIRE, WHISPER W/HYDROCOAT [id number] 17:24 [employer] 190CM Used 190CM *[id number] TRANSDUCER, TRUWAVE [id number] 16:03 NAVAS APONTE * Used W/STOCKCOCK *[id number] *[id number] [id number] *[id number] 534-520T *[id number] 534-552S *[id number] [id number] *2785937 [phone] *[id number] 18:13 [employer]IG[employer] ANGIOSEAL, FR6 VIP FR 6 Used *[id number] 16:03 MEDLINE INDUSTRIES PACK, CCL CUSTOM * Used *[id number] 16:03 MEDLINE PACER PEN, SKIN DUAL W/ RULER * Used *[id number] [id number] 16:55 MEDTRONIC BALLOON, 2.0 X 15MM EUPHORA 15MM Used *[id number] 17:08 MEDTRONIC BALLOON, 2.5 X 15MM EUPHORA 15MM Used *[id number] BALLOON, 2.75 X 15MM NC [id number] 17:31 MEDTRONIC 15MM Used EUPHORA *[id number] STENT, 2.5 22 RESOLUTE [id number] 18:00 MEDTRONIC 2.5 22 Used INTEGRITY RX *[id number] STENT, 2.75 12 RESOLUTE [id number] 18:08 MEDTRONIC 2.75 12 Used INTEGRITY RX *[id number] STENT, 2.75 30 RESOLUTE [id number] 17:16 MEDTRONIC 2.75 30 Used INTEGRITY RX *[id number] [id number] 17:01 [employer] MEDICAL 30 TALIA INDEFLATOR Used *6627859 [id number] 18:13 [employer] MEDICAL SHEATH, FR6.5 PRELUDE 11CM FR 6.5 038ACT Used *8592008 [id number] 16:03 [employer] WIRE, 3MMJ .035 180CM 180CM Used *8186183 PROBE COVER, STERILE [id number] 16:03 [employer] MEDICAL * Used ULTRASOUND W/ GEL *0800309 [id number] 16:03 NAMIC MANIFOLD, 4 PORT * Used *1733682 [id number] 16:03 NAMIC TUBING, HIGH PRESSURE 48" 48" Used *[id number] 16:03 [employer] OMNIPAQUE, 350 MG, 150ML 150ML [id number] Used 16:37 [employer] OMNIPAQUE, 350 MG, 50ML 50ML [id number] Used [id number] 16:03 [employer] MED[employer] BLANKET,WARM AIR CCL * Used *[id number] 16:03 [employer] MEDICAL SHEATH, FR5 TERUMO (10CM) FR 5 [id number] Used WIRE, RUNTHROUGH NS FLOPPY [id number] 17:48 [employer] MEDICAL 180CM Used .014 180CM *[id number] Equipment Model, Serial, Lot Number and Expiration Data Description Model Number Serial Number Lot Number Expiration Date ANGIOSEAL, FR6 [facility] [id number] 09-03-2017 STENT, 2.5 22 RESOLUTE [id number] 03-16-2018 INTEGRITY RX STENT, 2.75 12 RESOLUTE [id number] 12-11-2017 INTEGRITY RX STENT, 2.75 30 RESOLUTE [id number] 10-06-2018 INTEGRITY RX History: Allergies Allergy Reaction No Known Allergies History: Risk Factors Family History of Hypertension Dyslipidemia Previous LA Previous Heart Failure Premature CAD Yes Yes No Yes No Prior Valve Prior PCI Prior CABG Surgery No No No Cerebrovascular Peripheral Artery Chronic Lung On Dialysis Diabetes Diabetes Therapy Disease Disease Disease No No No No Yes Oral History: Symptoms/Diagnosis Selection Items Chest pain CARTER SOB History: Other Current Smoker Method Quit Packs a Day Years Used Pack Years No Cigarettes 8 Years Ago 1 30 30 Labs Hgb (g/dl) Hct (%) WBC (l/cumm) Platelets (thousands) 11.60-17.00 35.00-51.00 4.00-11.00 150.00-450.00 4.6 42.2 8.4 221 Glucose (mg/dl) BUN (mg/dl) Creatinine (mg/dl) BUN:Creatinine (1:x) 74.00-106.00 7.00-18.00 0.50-1.30 10.00-20.00 243 20 1.1 18.2 Na (meq/l) K (meq/l) 136.00-145.00 3.50-5.10 137 4.1 PT (sec) PTT (sec) INR (PTT:PT) 9.80-11.60 24.30-30.10 0.90-1.10 11 36.7 1 Troponin I (ng/ml) CPK (u/l) CPK-MB (ng/ML) 0.02-0.05 26.00-308.00 0.50-3.60 4.75 150 8.0 Medication Medication Total Dose (Bolus/Oral) Medication Total Dosage/Unit 1% XYLOCAINE 20 mL AGGRASTAT BOLUS 49.6 mL BRILLINTA 180 mg FENTANYL 75 mcg HEPARIN 05808 units NTG (IC) 600 mcg OXYGEN 2 l/min VERSED 2 mg Medications (Bolus/Oral) Medication Time Given Dosage/Unit Administered By Reason OXYGEN 02/18/2017 4:17:58 PM 2 l/min Fabiola Beckham 2 l/min OXYGEN given in lab by Fabiola Beckham BSRN via Nasal. VERSED 02/18/2017 4:20:51 PM 1 mg Fabiola Beckham 1 mg VERSED given in lab by Fabiola Beckham BSRN in Right Antecubital via Peripheral IV. Ordered by Bassem Carcamo. FENTANYL 02/18/2017 4:21:11 PM 25 mcg Rittenour, Fabiola 25 mcg FENTANYL given in lab by Fabiola Beckham BSRN in Right Antecubital via Peripheral IV. Ordere d by Bassem Carcamo. FENTANYL 02/18/2017 4:30:12 PM 25 mcg Rittenour, Fabiola 25 mcg FENTANYL given in lab by Fabiola Beckham BSRN in Right Antecubital via Peripheral IV. Ordere d by Bassem Carcamo. VERSED 02/18/2017 4:31:45 PM 1 mg Rittenjael, Fabiola 1 mg VERSED given in lab by Fabiola Beckham BSRN in Right Antecubital via Peripheral IV. Ordered by Bassem Carcamo. 1% XYLOCAINE 02/18/2017 4:32:26 PM 20 mL Bassem Carcamo 20 mL 1% XYLOCAINE given in lab by Bassem Carcamo in Right Groin via Subcutaneous. Ordered by Bassem Cardenas. FENTANYL 02/18/2017 4:32:40 PM 25 mcg Rittenour, Fabiola 25 mcg FENTANYL given in lab by Fabiola Beckham BSRN in Right Antecubital via Peripheral IV. Ordere d by Bassem Carcamo. HEPARIN 02/18/2017 4:45:24 PM 8000 units Fabiola Beckham As per physician s verbal order 8000 units HEPARIN given in lab by Fabiola Beckham BSRN in Right Antecubital via Peripheral IV. Ord ered by Bassem Carcamo. Reason: As per physicians verbal order. HEPARIN 02/18/2017 5:00:53 PM 2000 units Fabiola Beckham 2000 units HEPARIN given in lab by Fabiola Beckham BSRN in Right Antecubital via Peripheral IV. Ord ered by Bassem Carcamo. NTG (IC) 02/18/2017 5:11:02 PM 200 mcg Bassem Carcamo 200 mcg NTG (IC) given in lab by Bassem Carcamo via Intra-coronary. Ordered by Bassem Carcamo. NTG (IC) 02/18/2017 5:39:10 PM 200 mcg Bassem Carcamo 200 mcg NTG (IC) given in lab by Bassem Carcamo via Intra-coronary. Ordered by Bassem Carcamo. HEPARIN 02/18/2017 5:47:35 PM 2000 units Dolly Beckhamy 2000 units HEPARIN given in lab by Rittenour, Fabiola, BSRN in Right Antecubital via Peripheral IV. Ord ered by Bassem Carcamo. AGGRASTAT BOLUS 02/18/2017 5:58:05 PM 49.6 mL Fabiola Beckham As per physic ians verbal order 49.6 mL AGGRASTAT BOLUS given in lab by Fabiola Beckham BSRN in Right Antecubital via Peripheral IV . Ordered by Bassem Carcamo. Reason: As per physicians verbal order. NTG (IC) 02/18/2017 6:01:14 PM 200 mcg Bassem Carcamo 200 mcg NTG (IC) given in lab by Bassem Carcamo via Intra-coronary. Ordered by Bassem Carcamo. BRILLINTA 02/18/2017 6:11:11 PM 180 mg Fabiola Beckham 180 mg BRILLINTA given in lab by Fabiola Beckham BSRN in Per mouth via Oral. Ordered by Peter Carcamo. Medication (Drip) Medication Time Given Dosage/Unit Concentration/Unit Diluent (ml) Solutio n AGGRASTAT DRIP 02/18/2017 6:02:19 PM 0.151 mcg/kg/min 12.5 mg 250 NaCl .9 0.151 mcg/kg/min AGGRASTAT DRIP given in lab by Fabiola Beckham BSRN in Right Antecubital via Perip heral IV. Pump/Drip Flow = 17.9 ml/hr using NaCl .9 with a concentration of 12.5 mg in 250 ml. Ordered by Bassem Carcamo. Reason: As per sharon olivas verbal order. IV Solutions 02/18/2017 4:14:27 PM 0 mL (IV) 1000 NaCl .9 Patient arrived on IV Solutions in Right Antecubital via Peripheral IV. Pump/Drip Flow = 20 ml/hr usi ng NaCl .9. Initial Case Assessment Cardiovascular HR Rhythm NIBP Chest Pain 77 sr 136/79 1 Circulatory - Right Pulses Dorsalis Pedis Femoral 3 3 Scale (0,1,2,3,4,d) Circulatory - Left Pulses Dorsalis Pedis Femoral 3 3 Scale (0,1,2,3,4,d) Neurological State Oriented to time-place- Alert Moves all extremities person Respiration - General Respiration Rate SpO2 (%) (B/min) 10 95 Final Case Assessment Cardiovascular HR Rhythm NIBP Chest Pain 89 sr 173/90 1 Circulatory - Right Pulses Dorsalis Pedis Femoral 2 2 Scale (0,1,2,3,4,d) Circulatory - Left Pulses Dorsalis Pedis Femoral 2 2 Scale (0,1,2,3,4,d) Neurological State Oriented to time-place- Alert Moves all extremities person Respiration - General Respiration Rate SpO2 (%) (B/min) 18 97 Chronological Log Time Study Chronological Log 16:11:31 Patient arrived via Bed. 16:11:32 Patient Name, D.O.B, / Armband Verified By R.N. 16:11:37 MD arrived. 16:11:39 Consent signed by the physician and the patient and verified by the Welder Assistant staff. 16:11:41 Pre-op and post- op instructions given; patient acknowledges understanding of instructions. 16:11:42 Verbal Stimulation=2 Physical Stimulation=2 Airway=2 Respiration=2 TOTAL=8. (0=absent, 1=li mited, 2=present) 16:13:23 Presedation assessment performed by Welder Assistant RN. 16:13:29 Patient has been NPO for More than 6Hrs. 16:13:31 Skin Breakdown-none 16:13:32 Garrett Prominences Protected 16:13:43 A # 20 IV was noted in the Antecubital (left). Grade = patent 16:14:06 A # 20 IV was noted in the Antecubital (right). Grade = patent 16:14:27 Patient arrived on IV Solutions in Right Antecubital via Peripheral IV. Pump/Drip Flow = 20 ml/hr using NaCl .9. 16:15:00 History and physical on the chart or being dictated. Vitals capture started with the following parameters, Patient=Adult, Interval=5 min, Initial Pr xzthrh=940 mmHg, 16:16:48 Deflation Rate=5 mmHg Assessment: Initial Case, HR=77 BPM, Rhythm=sr, XJPX=078/79 mmhg, Chest Pain=1 Right Pulses: Ahsan Ped=3, Femoral=3 16:16:51 Left Pulses: Ahsan Ped=3, Femoral=3 Neurological: State=Alert, Ox3, PENA Respiration: Resp=10 B/min, SpO2=95 % 16:17:26 HR=75 bpm, DXKM=290/79 mmhg, SpO2=95 %, Resp=8 B/min, David=10 16:17:58 2 l/min OXYGEN given in lab by Fabiola Beckham BSRN via Nasal. 16:19:50 Bilateral groins prepped with 2% chlorhexidine, and draped after a 3 min. waiting time. 1 mg VERSED given in lab by Fabiola Beckham BSRN in Right Antecubital via Peripheral IV. Orde red by Dona, 16:20:51 Bassem. 25 mcg FENTANYL given in lab by Fabiola Beckham BSRN in Right Antecubital via Peripheral IV. Ordered by Dona, 16:21:11 Bassem. 16:22:23 HR=78 bpm, WIVE=893/87 mmhg, SpO2=96.0 %, Resp=12 B/min 16:24:14 Reference ECG taken 16:27:26 HR=76 bpm, YJXL=798/82 mmhg, SpO2=94.0 %, Resp=10 B/min 16:28:11 Pressure channel 1 zeroed. 25 mcg FENTANYL given in lab by Fabiola Beckham BSRN in Right Antecubital via Peripheral IV. Ordered by Dona, 16:30:12 Bassem. Time Out. Correct patient, correct procedure,correct physician, power injector loaded with cont rast with surgical team 16:31:37 present. Time Out Concurred by MD and individual staff in procedure 1 mg VERSED given in lab by Fbaiola Beckham BSRN in Right Antecubital via Peripheral IV. Orde red by Dona, 16:31:45 Bassem. 16:32:23 HR=82 bpm, DOPS=872/89 mmhg, SpO2=94.0 %, Resp=8 B/min 16:32:25 Case Start 16:32:26 20 mL 1% XYLOCAINE given in lab by Bassem Carcamo in Right Groin via Subcutaneous. Ordered by Bassem Carcamo. 25 mcg FENTANYL given in lab by Fabiola Beckham BSRN in Right Antecubital via Peripheral IV. Ordered by Dona, 16:32:40 Bassem. 16:34:02 Access site was Right Femoral Artery. 16:34:12 A SHEATH, FR5 TERUMO (10CM) FR 5 was advanced into the Fem Art (right) using the Percutaneo us technique. 16:34:24 Activated Clotting Time Drawn A PIGTAIL ANG. INFINITI CATHETER FR 5 was advanced over a wire. OMNIPAQUE, 350 MG, 50ML 50ML wa s used for 16:35:27 injections. Recorded Pressure: LV, HR=75, Condition=Condition 1 16:35:46 (Left Ventricle) LV 118/10/16 16:36:53 The LV was injected at 10 cc/sec for a total of 30. OMNIPAQUE, 350 MG, 50ML 50ML used. Recorded Pressure: LV, Ao, HR=77, Condition=Condition 1 16:37:21 (Left Ventricle) LV 116/9/15, (Aorta) Ao 125/70/93 16:37:26 HR=70 bpm, PBMT=706/79 mmhg, SpO2=94.0 %, Resp=15 B/min, Pain=0, David=10, Jean Baptiste=2 16:37:50 ACT (Normal Range 90-180) = 115 16:38:02 Catheter was removed A JL 4.0 INFINITI CATHETER FR 5 was advanced over a wire. OMNIPAQUE, 350 MG, 150ML 150ML was us ed for 16:38:03 injections. 16:39:12 The LCA was injected and visualized at various angles. OMNIPAQUE, 350 MG, 150ML 150ML used . 16:40:41 Catheter was removed A AR MOD INFINITI CATHETER FR 5 was advanced over a wire. OMNIPAQUE, 350 MG, 150ML 150ML was us ed for 16:40:43 injections. 16:41:22 The RCA was injected and visualized at various angles. OMNIPAQUE, 350 MG, 150ML 150ML used . 16:43:00 HR=91 bpm, GKMR=625/86 mmhg, SpO2=93.0 %, Resp=16 B/min 16:44:35 Catheter was removed 8000 units HEPARIN given in lab by Fabiola Beckham BSRN in Right Antecubital via Peripheral I V. Ordered by Dona, 16:45:24 Bassem. Reason: As per physicians verbal order. A SHEATH, FR6.5 PRELUDE 11CM FR 6.5 was exchanged in the Fem Art (right). This was necessary in order to 16:46:34 accomodate a larger catheter. 16:47:07 A AR 1 GUIDE CATHETER FR 6 was advanced over a wire. OMNIPAQUE, 350 MG, 150ML 150ML was use d for injections. 16:47:28 HR=83 bpm, WCMY=391/81 mmhg, SpO2=95.0 %, Resp=15 B/min 16:51:57 A WIRE, BALANCE MIDDLEWEIGHT 190CM 190CM was inserted via Fem Art (right). 16:52:25 HR=84 bpm, IGVO=760/81 mmhg, SpO2=95.0 %, Resp=17 B/min 16:52:33 Activated Clotting Time Drawn 16:53:49 A WIRE, ATW MARKER 195CM 195CM was inserted via Fem Art (right). 16:57:26 HR=78 bpm, FDMZ=400/76 mmhg, SpO2=96.0 %, Resp=17 B/min 16:57:37 ACT (Normal Range 90-180) = 234 A BALLOON, 2.0 X 15MM EUPHORA 15MM was inserted over WIRE, BALANCE MIDDLEWEIGHT 190CM 190CM via the 17:00:22 RCA Mid. A BALLOON, 2.0 X 15MM EUPHORA 15MM over a WIRE, BALANCE MIDDLEWEIGHT 190CM 190CM in the RCA Mid was 17:00:23 inflated using a 30 TALIA INDEFLATOR at ~TALIA~ talia for ~SECONDS~ sec. A BALLOON, 2.0 X 15MM EUPHORA 15MM over a WIRE, BALANCE MIDDLEWEIGHT 190CM 190CM in the RCA Mid was 17:00:26 inflated using a 30 TALIA INDEFLATOR at 16 talia for 20 sec. 2000 units HEPARIN given in lab by Fabiola Beckham BSRN in Right Antecubital via Peripheral I V. Ordered by Dona, 17:00:53 Bassem. 17:02:30 HR=76 bpm, QJDL=803/76 mmhg, SpO2=95.0 %, Resp=17 B/min 17:04:25 Balloon Removed. 17:07:31 HR=79 bpm, LFGZ=058/80 mmhg, SpO2=96.0 %, Resp=18 B/min 17:07:33 Activated Clotting Time Drawn A BALLOON, 2.5 X 15MM EUPHORA 15MM was inserted over WIRE, BALANCE MIDDLEWEIGHT 190CM 190CM via the 17:08:30 RCA Mid. A BALLOON, 2.5 X 15MM EUPHORA 15MM over a WIRE, BALANCE MIDDLEWEIGHT 190CM 190CM in the RCA Mid was 17:08:32 inflated using a 30 TALIA INDEFLATOR at 8 talia for 10 sec. A BALLOON, 2.5 X 15MM EUPHORA 15MM over a WIRE, BALANCE MIDDLEWEIGHT 190CM 190CM in the RCA Mid was 17:08:41 inflated using a 30 TALIA INDEFLATOR at 8 talia for 10 sec. A BALLOON, 2.5 X 15MM EUPHORA 15MM over a WIRE, BALANCE MIDDLEWEIGHT 190CM 190CM in the RCA Mid was 17:09:19 inflated using a 30 TALIA INDEFLATOR at 14 talia for 15 sec. A BALLOON, 2.5 X 15MM EUPHORA 15MM over a WIRE, BALANCE MIDDLEWEIGHT 190CM 190CM in the RCA Mid was 17:09:33 inflated using a 30 TALIA INDEFLATOR at 14 talia for 15 sec. 17:09:58 Balloon Removed. 17:11:02 200 mcg NTG (IC) given in lab by Bassem Carcamo via Intra-coronary. Ordered by Peter Carcamo. 17:12:09 ACT (Normal Range 90-180) = 275 17:12:22 A BALLOON, 2.5 X 15MM EUPHORA 15MM was inserted over WIRE, ATW MARKER 195CM 195CM via the R CA Mid. 17:12:32 HR=77 bpm, NTRX=979/80 mmhg, SpO2=95.0 %, Resp=17 B/min A BALLOON, 2.5 X 15MM EUPHORA 15MM over a WIRE, ATW MARKER 195CM 195CM in the RCA Mid was infla flaquita using 17:14:18 a 30 TALIA INDEFLATOR at 8 talia for 10 sec. 17:17:33 HR=81 bpm, MGWT=212/64 mmhg, SpO2=95.0 %, Resp=17 B/min 17:18:30 BMW Wire removed A STENT, 2.75 30 RESOLUTE INTEGRITY RX 2.75 30 was advanced through a AR 1 GUIDE CATHETER FR 6 over a 17:18:44 WIRE, ATW MARKER 195CM 195CM. A STENT, 2.75 30 RESOLUTE INTEGRITY RX 2.75 30 was deployed using a 30 TALIA INDEFLATOR at 9 atmo spheres for 17:18:45 35 seconds in the RCA Mid. 17:21:09 A WIRE, BALANCE MIDDLEWEIGHT 190CM 190CM was inserted via Fem Art (right). 17:23:07 HR=66 bpm, MTJL=042/75 mmhg, SpO2=96.0 %, Resp=16 B/min 17:23:34 BMW Wire removed 17:23:56 A WIRE, WHISPER W/HYDROCOAT 190CM 190CM was inserted via Fem Art (right). 17:27:31 HR=65 bpm, COLI=557/74 mmhg, SpO2=97.0 %, Resp=17 B/min 17:28:29 ATW Wire removed 17:28:56 A WIRE, BALANCE MIDDLEWEIGHT 190CM 190CM was inserted via Fem Art (right). A BALLOON, 2.5 X 15MM EUPHORA 15MM was inserted over WIRE, WHISPER W/HYDROCOAT 190CM 190CM via the 17:29:55 RCA Mid. A BALLOON, 2.5 X 15MM EUPHORA 15MM over a WIRE, WHISPER W/HYDROCOAT 190CM 190CM in the PDA Prox was 17:30:13 inflated using a 30 TALIA INDEFLATOR at 8 talia for 30 sec. 17:31:01 Balloon Removed. 17:31:37 Whisper Wire removed A BALLOON, 2.75 X 15MM NC EUPHORA 15MM was inserted over WIRE, BALANCE MIDDLEWEIGHT 190CM 190CM via 17:32:11 the RCA Mid. 17:32:30 HR=64 bpm, CUXB=514/79 mmhg, SpO2=97.0 %, Resp=19 B/min A BALLOON, 2.75 X 15MM NC EUPHORA 15MM over a WIRE, BALANCE MIDDLEWEIGHT 190CM 190CM in the RCA 17:35:07 was inflated using a 30 TALIA INDEFLATOR at 16 talia for 45 sec. A BALLOON, 2.75 X 15MM NC EUPHORA 15MM over a WIRE, BALANCE MIDDLEWEIGHT 190CM 190CM in the RCA 17:36:02 was inflated using a 30 TALIA INDEFLATOR at 20 talia for 20 sec. A BALLOON, 2.75 X 15MM NC EUPHORA 15MM over a WIRE, BALANCE MIDDLEWEIGHT 190CM 190CM in the RCA 17:36:54 was inflated using a 30 TALIA INDEFLATOR at 25 talia for 20 sec. 17:37:33 HR=65 bpm, ZOHQ=411/85 mmhg, SpO2=97.0 %, Resp=18 B/min A BALLOON, 2.75 X 15MM NC EUPHORA 15MM over a WIRE, BALANCE MIDDLEWEIGHT 190CM 190CM in the RCA 17:37:54 was inflated using a 30 TALIA INDEFLATOR at 25 talia for 20 sec. 17:38:36 Balloon Removed. 17:38:41 Wire removed 17:39:10 200 mcg NTG (IC) given in lab by Bassem Carcamo via Intra-coronary. Ordered by Peter Carcamo. 17:42:34 HR=62 bpm, MVUK=827/86 mmhg, SpO2=95.0 %, Resp=18 B/min 17:43:51 Catheter was removed A XBC 4.0 GUIDE CATHETER FR 6 was advanced over a wire. OMNIPAQUE, 350 MG, 50ML 50ML was used f or 17:46:42 injections. 2000 units HEPARIN given in lab by Fabiola Beckham BSRN in Right Antecubital via Peripheral I V. Ordered by Dona, 17:47:35 Bassem. 17:48:14 HR=87 bpm, JYAU=614/71 mmhg, SpO2=97.0 %, Resp=16 B/min 17:51:00 A WIRE, RUNTHROUGH NS FLOPPY .014 180CM 180CM was inserted via Fem Art (right). 17:52:32 ZN=750 bpm, EDUB=827/79 mmhg, SpO2=97.0 %, Resp=19 B/min A BALLOON, 2.5 X 15MM EUPHORA 15MM was inserted over WIRE, RUNTHROUGH NS FLOPPY .014 180CM 180C M via 17:52:41 the CIRC Mid. A BALLOON, 2.5 X 15MM EUPHORA 15MM over a WIRE, RUNTHROUGH NS FLOPPY .014 180CM 180CM in the CI RC 17:53:16 Mid was inflated using a 30 TALIA INDEFLATOR at 10 talia for 25 sec. A BALLOON, 2.5 X 15MM EUPHORA 15MM over a WIRE, RUNTHROUGH NS FLOPPY .014 180CM 180CM in the CI RC 17:54:11 Mid was inflated using a 30 TALIA INDEFLATOR at 12 talia for 15 sec. 17:56:10 Balloon Removed. 17:56:38 Activated Clotting Time Drawn 17:57:33 HR=76 bpm, GSRD=840/91 mmhg, SpO2=98.0 %, Resp=16 B/min 49.6 mL AGGRASTAT BOLUS given in lab by Fabiola Beckham BSRN in Right Antecubital via Periphe ral IV. Ordered by 17:58:05 Bassem Carcamo. Reason: As per physicians verbal order. A STENT, 2.5 22 RESOLUTE INTEGRITY RX 2.5 22 was advanced through a XBC 4.0 GUIDE CATHETER FR 6 over a 17:59:49 WIRE, RUNTHROUGH NS FLOPPY .014 180CM 180CM. A STENT, 2.5 22 RESOLUTE INTEGRITY RX 2.5 22 was deployed using a 30 TALIA INDEFLATOR at 9 atmosp heres for 25 17:59:50 seconds in the CIRC Mid. 18:00:35 Re-inflated the stent balloon in the CIRC Mid to 11 TALIA for 15 seconds. 18:01:07 Delivery device removed 18:01:14 200 mcg NTG (IC) given in lab by Bassem Carcamo via Intra-coronary. Ordered by Peter Carcamo. 0.151 mcg/kg/min AGGRASTAT DRIP given in lab by Fabiola Beckham BSRN in Right Antecubital via Peripheral IV. 18:02:19 Pump/Drip Flow = 17.9 ml/hr using NaCl .9 with a concentration of 12.5 mg in 250 ml. Ordere d by Bassem Carcamo. Reason: As per physicians verbal order. 18:02:34 HR=95 bpm, AJSV=243/96 mmhg, SpO2=98.0 %, Resp=15 B/min 18:02:51 Wire removed 18:03:02 ACT (Normal Range 90-180) = 242 18:03:56 A WIRE, RUNTHROUGH NS FLOPPY .014 180CM 180CM was inserted via Fem Art (right). 18:07:35 HR=89 bpm, OCBH=790/98 mmhg, SpO2=97.0 %, Resp=13 B/min A STENT, 2.75 12 RESOLUTE INTEGRITY RX 2.75 12 was advanced through a XBC 4.0 GUIDE CATHETER FR 6 over a 18:07:41 WIRE, RUNTHROUGH NS FLOPPY .014 180CM 180CM. A STENT, 2.75 12 RESOLUTE INTEGRITY RX 2.75 12 was deployed using a 30 TALIA INDEFLATOR at 13 talia ospheres 18:09:17 for 20 seconds in the CIRC Prox. 18:11:11 180 mg BRILLINTA given in lab by Fabiola Beckham BSRN in Per mouth via Oral. Ordered by Bassem Salmeron. 18:11:12 Delivery device removed 18:11:30 Wire removed Recorded Pressure: AoP, FR=179, Condition=Condition 1 18:11:43 (AO post) AoP 165/90/121 18:12:38 HR=97 bpm, KNLN=217/99 mmhg, SpO2=97.0 %, Resp=16 B/min 18:12:45 An injection in the Fem Art (right) was made through the SHEATH, FR6.5 PRELUDE 11CM FR 6.5. 18:13:27 Access Site prepped with betadine. 18:14:04 ANGIOSEAL, FR6 VIP FR 6 placement in the Fem Art (right) 18:14:19 No case complications noted. 18:14:45 Case End 18:17:40 HR=89 bpm, REGE=528/90 mmhg, Resp=18 B/min 18:18:17 Sterile dressing applied to site Assessment: Final Case, HR=89 BPM, Rhythm=sr, OIOH=356/90 mmhg, Chest Pain=1 Right Pulses: Ahsan Ped=2, Femoral=2 18:18:32 Left Pulses: Ahsan Ped=2, Femoral=2 Neurological: State=Alert, Ox3, PENA Respiration: Resp=18 B/min, SpO2=97 % 18:22:38 Vitals capture stopped. 18:23:09 Patient moved to bed 18:25:56 Patient transported to [facility] End Study - Contrast Media Used In Study Contrast Total Opened (mL) Total Used (mL) Total Wasted (mL) Omnipaque 280 280 0 End Study - Maximum Contrast Load Max Contrast Load (mL) 448.6 End Study - Radiation Exposure Fluoro Time (minutes) 20.6 End Study - Sheaths Sheaths Pulled By Sheath Hold Time (min) aBssem Carcamo End Study - Patient Disposition Complications Transferred To Interventional Outcome No Telemetry Bed successful
--- NOTE | 2017-02-18 19:10 | EKG ---
Date Performed: 02/17/2017 Time Performed: 14:48:38 PTAGE: 66 years EKG: Sinus rhythm WITH OCCASIONAL SUPRAVENTRICULAR PREMATURE COMPLEXES BORDERLINE ECG INTERPRETATION BASED ON A DEFAUL T AGE OF 40 YEARS Compared to the PREVIOUS TRACING from 02/20/93, rate has increased, QRS may have changed over time DOCTOR: Juan Jose Zimmerman Interpretating Date/Time 02/18/2017 19:08:35
--- NOTE | 2017-02-18 19:19 | MB ---
cc: BASSEM CARCAMO MD DATE OF CONSULTATION 02/18/17 HISTORY OF PRESENT ILLNESS Mr. Christine is a 66-year-old white male, retired nurse, with dyspnea on exertion, shortness of breath and right-sided chest discomfort for the last three days increased with exertion and improved with rest. He was initially admitted to the [facility] and was found to have elevated troponin consistent with non-ST elevation myocardial function. He was transferred to [facility] for further cardiac evaluation. PAST MEDICAL HISTORY 1. Diabetes mellitus, 2. Hypertension, 3. Dyslipidemia. 4. History of hernia repair 5. Appendectomy No history of coronary artery disease or CVA. MEDICATIONS 1. Avapro 150 mg a day 2. Metformin 750 mg twice a day 3. Baby aspirin 4. Glimepiride ALLERGIES None. SOCIAL HISTORY The patient does not smoke. He drinks alcohol socially. He is accompanied by his . FAMILY HISTORY Positive for heart disease in his father. REVIEW OF SYSTEMS Otherwise negative. PHYSICAL EXAMINATION VITAL SIGNS: Blood pressure 156/85, pulse 70 and regular. HEENT: Negative. 2+ carotid upstrokes. No bruits. LUNGS: Clear. HEART: Regular with no murmur, gallop or rub. ABDOMEN: Soft, no bruits. EXTREMITIES: Without edema. 2+ Distal pulses NEUROLOGIC: Grossly nonfocal. CARDIOLOGY STUDIES EKG was reviewed and showed normal sinus rhythm, PACs and nonspecific T-wave changes. LABORATORY DATA Hemoglobin 14.2, potassium 4.1, creatinine 1.1, troponin 3.1, 6.2 and 4.8, CK 169 and 150, CK-MB 9.9 and 8.0. BNP 88, AST 45, ALT 36. DIAGNOSES 1. [id number] myocardial function. 2. Diabetes mellitus. 3. Hypertension 4. Dyslipidemia. DISPOSITION Mr. Christine will undergo cardiac catheterization and coronary intervention if necessary. He understands the risks and benefits and wishes to proceed. We will continue an intensified aggressive of his cardiac risk factors. The plan was discussed with the patient's and they wish to proceed. Bassem Carcamo MD OMessi/ /6:49 PM /7:09 PM
[2017-02-18] MEDS ORDERED: MISC INFORMATION XX ONE (19:45)
[2017-02-18] MEDS ORDERED: SODIUM CHLOR 0.9% 1000 ML INJ 1,000 ML IV SCH (22:00)
[2017-02-18 23:18] LABS: AUTOMATED NEUTROPHIL # 8.4 TH/MM3 (1.8-7.7); BASOPHIL % 0.4 % (0.0-2.0); EOSINOPHIL # 0.1 TH/MM3 (0-0.4); HEMATOCRIT 43.4 % (39.0-51.0); HEMO FLAGS DIFF FINAL; LYMPH % 12.9 % (9.0-44.0); LYMPHOCYTE # 1.4 TH/MM3 (1.0-4.8); MEAN CELL VOLUME 90.4 FL (80.0-100.0); MEAN CORPUSCULAR HEMOGLOBIN 30.5 PG (27.0-34.0); MEAN CORPUSCULAR HGB CONC 33.7 % (32.0-36.0); MONO % 6.3 % (0.0-8.0); NEUT % 79.4 % (16.0-70.0); PLATELET COUNT 231 TH/MM3 (150-450); RED CELL DISTRIBUTION WIDTH 13.5 % (11.6-17.2); WHITE BLOOD COUNT 10.6 TH/MM3 (4.0-11.0)
[2017-02-19] VITALS (16 sets, daily range): BP systolic 125–146; BP diastolic 78–84; PULSE 66–108; RESP 16–18; TEMP 97–98.1; O2SAT 97–98
[2017-02-19] MEDS: SODIUM CHLORIDE 0.9% FLUSH 10 ML FLUSH IV FLUSH SCH ×2 (02:39→09:00)
[2017-02-19] MEDS: CARVEDILOL 6.25 MG TAB PO SCH ×2 (02:40→09:31)
[2017-02-19] MEDS: ATORVASTATIN 20 MG TAB PO SCH ×2 (02:40→02:44)
[2017-02-19 06:48] LABS: AUTOMATED NEUTROPHIL # 7.3 TH/MM3 (1.8-7.7); BASOPHIL % 0.4 % (0.0-2.0); EOSINOPHIL # 0.1 TH/MM3 (0-0.4); EOSINOPHIL % 1.4 % (0.0-4.0); HEMATOCRIT 42.2 % (39.0-51.0); HEMO FLAGS DIFF FINAL; LYMPH % 14.2 % (9.0-44.0); LYMPHOCYTE # 1.4 TH/MM3 (1.0-4.8); MEAN CELL VOLUME 89.7 FL (80.0-100.0); MEAN CORPUSCULAR HEMOGLOBIN 30.5 PG (27.0-34.0); MONO % 7.3 % (0.0-8.0); NEUT % 76.7 % (16.0-70.0); PLATELET COUNT 210 TH/MM3 (150-450); RED BLOOD COUNT 4.71 MIL/MM3 (4.50-5.90); RED CELL DISTRIBUTION WIDTH 13.3 % (11.6-17.2); WHITE BLOOD COUNT 9.6 TH/MM3 (4.0-11.0)
--- NOTE | 2017-02-19 06:57 | MA ---
cc: NELSON SLAAS DATE 02/18/2017 INDICATION [id number] myocardial function. Class IV angina. PROCEDURE PERFORMED 1. Retrograde heart catheterization with left ventriculography and selective coronary angiography. 2. Angioplasty and stenting of the right coronary artery. 3. Angioplasty and stenting of the left circumflex artery. 4. Moderate sedation. ACCESS SITE Right femoral artery. EQUIPMENT USED A 5-Korean pigtail catheter, 5-Korean JL4 and AR modified coronary artery catheters. 2.0 and 2.5-mm balloon for predilatation. BMW, Marker wire and Whisper wires to the right coronary artery. 2.75 x 30-mm Resolute stent at 9 atmospheres to the mid and distal right coronary artery extending into the PLV, post-dilated at 2.75 x 15 Non-Compliant balloon at 25 atmospheres. The ostium of the posterior descending artery was dilated through the stent struts with 2.5 Compliant balloon prior to the final stent post-dilatation. Run-Through wire and 2.0 balloon to the mid-left circumflex which was stented using 2.5 x 22-mm Resolute stent at 11 atmospheres in the midportion and 2.75 x 12-mm Resolute stent at 13 atmospheres in the proximal portion in an overlapping manner. MEDICATIONS 1. Versed IV. 2. Fentanyl IV. 3. Heparin IV. 4. Nitroglycerin IC. 5. Tirofiban bolus and drip. 6. Brilinta 118 mg p.o. CONTRAST Omnipaque 280 cc. COMPLICATIONS None. ESTIMATED BLOOD LOSS Less than 10 cc. METHOD OF HEMOSTASIS AngioSeal closure. RESULTS A. HEMODYNAMICS Heart rate 70 beats per minute. Left ventricular end-diastolic pressure 9 mmHg. Left ventricle 120/9. Aorta 120/70/93. B. LEFT VENTRICULOGRAPHY Left ventricular ejection fraction 45%. Wall motion: Mid-inferior hypokinesis. No mitral regurgitation. C. CORONARY ANGIOGRAPHY The left main coronary artery is short and patent. The left anterior descending coronary artery is patent. D1 patent. D2 patent. D3 patent. The left circumflex artery has 99% stenosis in the proximal and mid-portion. OM-1 patent. OM-2 is patent. OM-3 is patent. Mid and proximal left circumflex artery lesion 20 mm in length, pre-MAURICE flow 1, post-MAURICE flow 3, post-stenosis 0. The right coronary artery had 99% stenosis in the distal portion and 80% stenosis in the mid-portion. The lesion length was 27 mm, pre-MAURICE flow 3, post-MAURICE flow 3, post-stenosis 0. DVA 20% proximal stenosis, PLV 50% stenosis in the mid-portion. Post-intervention angiography revealed excellent flow in the stented segment and no distended segments and no evidence of dissection, thrombosis or distal embolization. DIAGNOSES 1. Severe multivessel coronary artery disease including right coronary artery and left circumflex artery. 2. Moderate left ventricular dysfunction consistent with ischemic cardiomyopathy. 3. Successful angioplasty and stenting of the right coronary artery. 4. Successful angioplasty and stenting of the left circumflex artery. DISPOSITION 1. Mr. Christine will be monitored on telemetry after his procedure with serial enzymes and EKGs. 2. We will continue long-term therapy with Brilinta and baby aspirin. 3. Also continue and intensify aggressive modification of his cardiac risk factors. 4. I will see him back for followup in our office after discharge. MD Noemy DobbinsQ/SSB /6:44 PM /6:39 AM
[2017-02-19 07:04] LABS: CREATINE KINASE 191 U/L (39-308); HDL CHOLESTEROL 32.3 MG/DL (40.0-60.0)
[2017-02-19 07:17] LABS: ANION GAP 12 MEQ/L (5-15); BICARBONATE 18.7 MEQ/L (21.0-32.0); BLOOD UREA NITROGEN 12 MG/DL (7-18); CHLORIDE 106 MEQ/L (98-107); GLOMERULAR FILTRATION RATE 108 ML/MIN (>89); LDL CHOLESTEROL 117 MG/DL (0-99); SODIUM (NA) 137 MEQ/L (136-145)
[2017-02-19 08:28] LABS: CKMB 12.9 NG/ML (0.5-3.6)
--- NOTE | 2017-02-19 08:38 | EKG ---
Date Performed: 02/19/2017 Time Performed: 05:45:38 PTAGE: 66 years EKG: Sinus arrhythmia Normal ECG PREVIOUS TRACING : 02/18/2017 22.53 DOCTOR: Channing Mckinnon Interpretating Date/Time 02/19/2017 08:37:27
--- NOTE | 2017-02-19 08:53 | EKG ---
Date Performed: 02/18/2017 Time Performed: 22:53:02 PTAGE: 66 years EKG: Sinus rhythm with PAC(s) Inferior infarct - age undetermined Low QRS voltages in precordial leads Abnormal ECG PREVIOUS TRACING : 02/17/2017 14.48 DOCTOR: Channing Mckinnon Interpretating Date/Time 02/19/2017 08:52:20
[2017-02-19] MEDS ORDERED: ASPIRIN 81 MG CHEW TAB PO SCH (09:00)
[2017-02-19] MEDS ORDERED: LOSARTAN 50 MG TAB PO SCH (09:00)
[2017-02-19] MEDS ORDERED: TICAGRELOR 90 MG TAB PO SCH (09:00)
[2017-02-19] MEDS ORDERED: LISINOPRIL 5 MG TAB PO SCH (09:00)
--- NOTE | 2017-02-19 11:11 | HHI.PR ---
Objective Vitals Vital Signs Date Time Temp Pulse Resp B/P Pulse Ox O2 Delivery O2 Flow Rate FiO2 02/19/17 10:16 72 02/19/17 09:00 98 21 02/19/17 08:41 68 02/19/17 07:44 97.5 73 18 125/78 97 02/19/17 07:44 73 02/19/17 05:00 68 02/19/17 04:58 98.1 80 16 146/84 98 02/19/17 04:00 66 02/19/17 03:00 108 02/19/17 02:00 70 02/19/17 01:00 92 02/19/17 00:09 97.0 94 16 135/79 97 02/19/17 00:00 82 02/18/17 23:00 74 02/18/17 22:19 96 21 02/18/17 22:00 88 02/18/17 21:00 90 02/18/17 20:08 147/80 02/18/17 20:00 97.0 66 16 152/89 99 02/18/17 20:00 66 02/18/17 19:00 72 02/18/17 18:39 68 02/18/17 15:53 18 02/18/17 15:08 98.0 80 18 156/85 97 02/18/17 15:08 79 02/18/17 14:21 70 02/18/17 13:17 76 02/18/17 12:32 67 I/O 02/18/17 02/18/17 02/18/17 02/19/17 02/19/17 02/19/17 06:59 14:59 22:59 06:59 14:59 22:59 Intake Total 52 ml 613 ml 1484 ml Output Total 1550 ml Balance 52 ml 613 ml -66 ml Intake Oral 0 ml 50 ml 480 ml IV Total 52 ml 563 ml 1004 ml Output Urine Total 1550 ml # Voids 1 3 # Bowel Movements 0 0 0 Result Diagram: 02/19/1752702/19/17527 Objective Remarks GENERAL: This is a well-nourished, well-developed patient, in no apparent distress. CARDIOVASCULAR: Normal rate and regular rhythm without murmurs, gallops, or rubs. RESPIRATORY: Good respiratory efforts. Breath sounds equal and clear to auscultation bilaterally. GASTROINTESTINAL: Abdomen soft, non-tender, non-distended. Normal active bowel sounds MUSCULOSKELETAL: Extremities without cyanosis, or edema. NEURO: Alert & Oriented x4 to person, place, time, situation. Moves all ext x4 PSYCH: Appropriate mood and affect. A/P Problem List: (1) NSTEMI (non-ST elevated myocardial infarction) ICD Code: I21.4 Status: Acute (2) DM2 (diabetes mellitus, type 2) ICD Code: E11.9 Status: Acute (3) HTN (hypertension) ICD Code: I10 Status: Acute Brayden Domínguez MD Feb 19, 2017 11:11
--- NOTE | 2017-02-19 13:09 | PD.CARD.PN ---
Subjective Subjective Remarks No CP or SOB, feels fine Objective Medications Current Medications Medications (Trade) Dose Ordered Sig/Mima Route Start Time Stop Time Status Last Admin (NS Flush) 2 ml BID IV FLUSH 02/17/17 21:00 02/19/17 09:00 (NS Flush) 2 ml UNSCH PRN IV FLUSH 02/17/17 16:45 (Nitrostat Sl) 0.4 mg Q5M PRN SL 02/17/17 16:45 02/18/17 15:50 (Tylenol) 650 mg Q6H PRN PO 02/17/17 16:45 Ondansetron HCl 4 mg 4 mg Q6H PRN IV 02/17/17 16:45 (Heparin-D5W Inj) 250 ml @ 0 mls/hr TITRATE IV 02/17/17 16:45 02/18/17 15:45 (Morphine Inj) 6 mg Q4H PRN IV PUSH 02/17/17 16:45 (Pill Splitter) 1 ea UNSCH PRN OTHER 02/17/17 16:45 (D50w (Vial) Inj) 50 ml UNSCH PRN IV 02/17/17 17:15 (Glucagon Inj) 1 mg UNSCH PRN OTHER 02/17/17 17:15 (Cozaar) 50 mg DAILY PO 02/19/17 09:00 02/19/17 09:30 (Aspirin Chew) 81 mg DAILY PO 02/19/17 09:00 02/19/17 09:31 (Brilinta) 90 mg BID PO 02/19/17 09:00 02/19/17 09:32 (Coreg) 6.25 mg BID PO 02/18/17 22:00 02/19/17 09:31 (Lipitor) 20 mg HS PO 02/18/17 22:00 02/19/17 02:44 (Heparin Inj) 2,000 units ONCE ONCE IV 02/19/17 17:47 02/19/17 17:48 Vital Signs / I&O Vital Signs Date Time Temp Pulse Resp B/P Pulse Ox O2 Delivery O2 Flow Rate FiO2 02/19/17 12:42 66 02/19/17 11:52 98.0 72 18 129/82 97 02/19/17 11:52 72 02/19/17 10:16 72 02/19/17 09:00 98 21 02/19/17 08:41 68 02/19/17 07:44 97.5 73 18 125/78 97 02/19/17 07:44 73 02/19/17 05:00 68 02/19/17 04:58 98.1 80 16 146/84 98 02/19/17 04:00 66 02/19/17 03:00 108 02/19/17 02:00 70 02/19/17 01:00 92 02/19/17 00:09 97.0 94 16 135/79 97 02/19/17 00:00 82 02/18/17 23:00 74 02/18/17 22:19 96 21 02/18/17 22:00 88 02/18/17 21:00 90 02/18/17 20:08 147/80 02/18/17 20:00 97.0 66 16 152/89 99 02/18/17 20:00 66 02/18/17 19:00 72 02/18/17 18:39 68 02/18/17 15:53 18 02/18/17 15:08 98.0 80 18 156/85 97 02/18/17 15:08 79 02/18/17 14:21 70 02/18/17 13:17 76 I/O 02/18/17 02/18/17 02/18/17 02/19/17 02/19/17 02/19/17 07:00 15:00 23:00 07:00 15:00 23:00 Intake Total 52 ml 613 ml 1484 ml Output Total 1550 ml Balance 52 ml 613 ml -66 ml Intake Oral 0 ml 50 ml 480 ml IV Total 52 ml 563 ml 1004 ml Output Urine Total 1550 ml # Voids 1 3 # Bowel Movements 0 0 0 Physical Exam GENERAL: In NAD SKIN: Warm and dry. HEAD: Normocephalic. EYES: No scleral icterus. No injection or drainage. NECK: Supple, trachea midline. No JVD or lymphadenopathy. CARDIOVASCULAR: Regular rate and rhythm without murmurs, gallops, or rubs. RESPIRATORY: Breath sounds equal bilaterally. No accessory muscle use. GASTROINTESTINAL: Abdomen soft, non-tender, nondistended. MUSCULOSKELETAL: No cyanosis, or edema. Groin stable Laboratory Laboratory Tests Test 7/18/17 7/18/17 7/19/17 13:38 22:49 05:28 Activated Partial 36.7 SEC Thromboplast Time White Blood Count 10.6 TH/MM3 9.6 TH/MM3 Red Blood Count 4.80 MIL/MM3 4.71 MIL/MM3 Hemoglobin 14.6 GM/DL 14.4 GM/DL Hematocrit 43.4 % 42.2 % Mean Corpuscular Volume 90.4 FL 89.7 FL Mean Corpuscular Hemoglobin 30.5 PG 30.5 PG Mean Corpuscular Hemoglobin 33.7 % 34.0 % Concent Red Cell Distribution Width 13.5 % 13.3 % Platelet Count 231 TH/MM3 210 TH/MM3 Mean Platelet Volume 9.1 FL 9.6 FL Neutrophils (%) (Auto) 79.4 % 76.7 % Lymphocytes (%) (Auto) 12.9 % 14.2 % Monocytes (%) (Auto) 6.3 % 7.3 % Eosinophils (%) (Auto) 1.0 % 1.4 % Basophils (%) (Auto) 0.4 % 0.4 % Neutrophils # (Auto) 8.4 TH/MM3 7.3 TH/MM3 Lymphocytes # (Auto) 1.4 TH/MM3 1.4 TH/MM3 Monocytes # (Auto) 0.7 TH/MM3 0.7 TH/MM3 Eosinophils # (Auto) 0.1 TH/MM3 0.1 TH/MM3 Basophils # (Auto) 0.0 TH/MM3 0.0 TH/MM3 CBC Comment DIFF FINAL DIFF FINAL Differential Comment Sodium Level 137 MEQ/L Potassium Level 4.0 MEQ/L Chloride Level 106 MEQ/L Carbon Dioxide Level 18.7 MEQ/L Anion Gap 12 MEQ/L Blood Urea Nitrogen 12 MG/DL Creatinine 0.73 MG/DL Estimat Glomerular Filtration 108 ML/MIN Rate Random Glucose 201 MG/DL Calcium Level 8.8 MG/DL Total Creatine Kinase 191 U/L Creatine Kinase MB 12.9 NG/ML Triglycerides Level 192 MG/DL Cholesterol Level 188 MG/DL LDL Cholesterol 117 MG/DL HDL Cholesterol 32.3 MG/DL Cholesterol/HDL Ratio 5.82 RATIO Imaging Last Impressions Chest X-Ray 02/17/17 2147 Signed Impressions: Service Date/Time: Friday, February 17, 2017 15:16 - CONCLUSION: 1. No acute cardiopulmonary disease. Sonido Zapata MD Assessment and Plan Problem List: (1) NSTEMI (non-ST elevated myocardial infarction) (2) DM2 (diabetes mellitus, type 2) (3) HTN (hypertension) (4) Presence of stent in coronary artery in patient with coronary artery disease Assessment and Plan Remains stable. Good PCI result. Renal fx stable. Continue Brilinta, baby ASA, carvedilol, losartan, atorvastatin, Zetia, Imdur and prn NTG (scripts given). Resume metformin in 48 hrs. Increase activity. DC home if groin remains stable. Will schedule outpt f/u and cardiac rehab. Bassem Carcamo MD Feb 19, 2017 13:09
[2017-02-19] MEDS ORDERED: CARV6.25 PO (13:54)
[2017-02-19] MEDS ORDERED: BRIL90TA PO (13:54)
[2017-02-19] MEDS ORDERED: ATOR20TA15 PO (13:54)
--- NOTE | 2017-02-19 13:59 | HHI.DS ---
Discharge Summary Admission Date Feb 17, 2017 at 16:45 Discharge Date: Feb 19, 2017 Admitting Diagnosis NSTEMI (1) NSTEMI (non-ST elevated myocardial infarction) ICD Code: I21.4 (2) DM2 (diabetes mellitus, type 2) ICD Code: E11.9 (3) HTN (hypertension) ICD Code: I10 Procedures Heart catheterization. Brief History - From Admission This patient is a 89-year-old gentleman who admits just under week increased dyspnea on exertion and shortness of breath and 2-3 days of increasing right sided chest pain which was severe today. Patient said these symptoms subsided with rest. He went to the gym today and try to do his usual routine and had reoccurrence of chest pain. Patient did come to the emergency room for further evaluation (after his primary doctor referred him) and was found to have elevated troponins without EKG changes consistent with ischemia. Patient's pain has resolved with aspirin and Nitropaste. Patient normally takes a baby aspirin every day. He has been admitted to the medical team for further evaluation by cardiology for non-ST elevation PR CBC/BMP: 02/19/17 0528 02/19/17 0528 Significant Findings Laboratory Tests Test 02/17/17 02/17/17 02/17/17 02/18/17 15:00 15:20 21:26 04:50 Neutrophils (%) (Auto) 75.3 % (16.0-70.0) Blood Urea Nitrogen 20 MG/DL (7-18) Estimat Glomerular Filtration 67 ML/MIN (>89) Rate Random Glucose 243 MG/DL (74-106) Aspartate Amino Transf 45 U/L (15-37) (AST/SGOT) Alkaline Phosphatase 121 U/L (45-117) Troponin I 3.14 NG/ML 6.18 NG/ML 4.75 NG/ML (0.02-0.05) (0.02-0.05) (0.02-0.05) Urine Specific [place] GREATER THAN 1.035 (1.002-1.035) Urine Protein 30 mg/dL (NEG-TRACE) Urine Ketones 40 mg/dL (NEG) Urine Leukocyte Esterase SMALL (NEG) Urine WBC 25-49 /hpf (0-5) Urine Calcium Oxalate Crystals FEW /hpf (NONE) Urine Bacteria RARE /hpf (NONE) Urine Mucus FEW /lpf (OCC) Activated Partial 31.8 SEC 33.4 SEC Thromboplast Time (24.3-30.1) (24.3-30.1) Creatine Kinase MB 9.9 NG/ML 8.0 NG/ML (0.5-3.6) (0.5-3.6) Test 02/18/17 02/18/17 02/19/17 13:38 22:49 05:28 Activated Partial 36.7 SEC Thromboplast Time (24.3-30.1) Neutrophils (%) (Auto) 79.4 % 76.7 % (16.0-70.0) (16.0-70.0) Neutrophils # (Auto) 8.4 TH/MM3 (1.8-7.7) Carbon Dioxide Level 18.7 MEQ/L (21.0-32.0) Random Glucose 201 MG/DL (74-106) Creatine Kinase MB 12.9 NG/ML (0.5-3.6) Triglycerides Level 192 MG/DL (42-150) LDL Cholesterol 117 MG/DL (0-99) HDL Cholesterol 32.3 MG/DL (40.0-60.0) Imaging Last Impressions Chest X-Ray 02/17/17 1507 Signed Impressions: Service Date/Time: Friday, February 17, 2017 15:16 - CONCLUSION: 1. No acute cardiopulmonary disease. Sonido Zapata MD PE at Discharge GENERAL: This is a well-nourished, well-developed patient, in no apparent distress. CARDIOVASCULAR: Normal rate and regular rhythm without murmurs, gallops, or rubs. RESPIRATORY: Good respiratory efforts. Breath sounds equal and clear to auscultation bilaterally. GASTROINTESTINAL: Abdomen soft, non-tender, non-distended. Normal active bowel sounds MUSCULOSKELETAL: Extremities without cyanosis, or edema. NEURO: Alert & Oriented x4 to person, place, time, situation. Moves all ext x4 PSYCH: Appropriate mood and affect. Pt update on day of discharge Patient reports he is feeling great. Eager to go home. No chest pain or shortness of breath. Hospital Course 66-year-old male admitted with NSTEMI, patient followed by cardiology and underwent heart catheterization with PCI and stent placement. He is discharged on Brilinta, baby ASA, carvedilol, losartan, atorvastatin, Zetia, Imdur and prn NTG. Patient also has hypertension which was monitored and controlled on his current medications. Diabetes was managed with sliding scale insulin with Accu- Cheks. He was advised to resume his diabetic is medications on discharge except metformin needs to be on hold for 48 hours. Patient is discharged in good condition. He is to follow up outpatient with cardiology. Pt Condition on Discharge: Good Discharge Disposition: Discharge Home Discharge Time: <= 30 minutes Discharge Instructions DIET: Follow Instructions for: Heart Healthy Diet Activities you can perform: See Additionl Instruction Other Activity Instructions: Per Cardiology instructions. Follow up Referrals: Cardiology with Bassem Carcamo MD New Medications: Atorvastatin (Atorvastatin) 20 Mg Tab 20 MG PO HS #1 TAB Carvedilol (Coreg) 6.25 Mg Tab 6.25 MG PO BID #1 TAB Ticagrelor (Brilinta) 90 Mg Tab 90 MG PO BID #1 TAB Continued Medications: Aspirin (Aspirin Low Dose) 81 Mg Chew 81 MG CHEW DAILY Ref 0 TAB Glimepiride (Glimepiride) 4 Mg Tab 4 MG PO BIDAC Blood Sugar Management #60 Ref 0 TAB Irbesartan (Avapro) 150 Mg Tab 150 MG PO DAILY Blood Pressure Management #30 Ref 0 TAB Metformin (Metformin) 500 Mg Tab 750 MG PO BIDPC With meals Blood Sugar Management #60 Ref 0 TAB Brayden Domínguez MD Feb 19, 2017 13:59
[2017-02-19] MEDS ORDERED: HEPARIN SODIUM - IV 10,000 UNITS/10 ML VIAL IV ONE (17:47)
== END 2017-02-19 15:09 | disposition home or self-care (01) | DRG 247 ==
LOC: PHED 14:36 → PHEDA 16:45 → HCIS 19:51
PROVIDERS: ADMIT Family Medicine; ATTEND Family Medicine
PROC: 4A023N7 Measurement of Cardiac Sampling and Pressure, Left Heart, Percutaneous Approach (ICD-10-PCS; 2017-02-18)
PROC: B2111ZZ Fluoroscopy of Multiple Coronary Arteries using Low Osmolar Contrast (ICD-10-PCS; 2017-02-18)
PROC: B2151ZZ Fluoroscopy of Left Heart using Low Osmolar Contrast (ICD-10-PCS; 2017-02-18)
PROC: 027136Z Dilation of Coronary Artery, Two Arteries with Three Drug-eluting Intraluminal Devices, Percutaneous Approach (ICD-10-PCS; principal; 2017-02-18 15:00)
DX: I21.4 Non-ST elevation (NSTEMI) myocardial infarction (principal); I10 Essential (primary) hypertension; E11.9 Type 2 diabetes mellitus without complications; H35.30 Unspecified macular degeneration; Z87.891 Personal history of nicotine dependence; Z86.19 Personal history of other infectious and parasitic diseases; E78.00 Pure hypercholesterolemia, unspecified; E78.5 Hyperlipidemia, unspecified; I25.119 Atherosclerotic heart disease of native coronary artery with unspecified angina pectoris; I25.5 Ischemic cardiomyopathy
CPT/HCPCS: 71010; 80048; 80053; 80061; 81001; 82550; 82552; 82948; 83735; 83880; 84484; 85002; 85025; 85027; 85610; 85730; 87086; 92928; 92929; 93005; 93458; C1725; C1760; C1769; C1874; C1887; C1893; G0269; J1644; J2250; J3010; J3246; J7030; Q9967

== ENCOUNTER → 2017-06-11 | Outpatient (CLI) | payer MEDICARE, OTHER ==
[~2017-06-11] MED LIST changes: +ASPI81CH6 CHEW; +ATOR20TA15 PO; +BRIL90TA PO; +CARV6.25 PO; -CEPH250C PO; +GLIM4TAB PO; -GLUCTAB OR; -IBUP400T20 PO; +METF500T PO
== END ==
LOC: PLAB 08:10
PROVIDERS: ATTEND Urology
DX: R89.9 Unspecified abnormal finding in specimens from other organs, systems and tissues (principal); E29.1 Testicular hypofunction
CPT/HCPCS: 36415; 83690; 84403; 85014

== ENCOUNTER → 2017-07-21 | Outpatient (CLI) | payer MEDICARE, OTHER ==
[2017-07-21 09:43] LABS: HDL CHOLESTEROL 45.1 MG/DL (40.0-60.0); INDIRECT BILIRUBIN 0.5 MG/DL (0.0-0.8); TOTAL BILIRUBIN ADULT 0.7 MG/DL (0.2-1.0)
== END ==
LOC: PLAB 06:59
PROVIDERS: ATTEND Internal Medicine Interventional Cardiology
DX: E78.5 Hyperlipidemia, unspecified (principal)
CPT/HCPCS: 36415; 80061; 80076

== ENCOUNTER → 2017-10-29 | Outpatient (CLI) | payer MEDICARE, OTHER ==
[2017-10-29 14:22] LABS: ALBUMIN 3.7 GM/DL (3.4-5.0); DIRECT BILIRUBIN ADULT 0.2 MG/DL (0.0-0.2)
[2017-10-29 14:24] LABS: CHOLESTEROL/ HDL RATIO 2.98 RATIO; HDL CHOLESTEROL 41.6 MG/DL (40.0-60.0); INDIRECT BILIRUBIN 0.5 MG/DL (0.0-0.8); TOTAL BILIRUBIN ADULT 0.7 MG/DL (0.2-1.0); TOTAL PROTEIN 6.9 GM/DL (6.4-8.2)
== END ==
LOC: PLAB 08:58
PROVIDERS: ATTEND Internal Medicine Cardiovascular Disease
DX: E78.5 Hyperlipidemia, unspecified (principal); Z79.899 Other long term (current) drug therapy
CPT/HCPCS: 36415; 80061; 80076

== ENCOUNTER → 2017-12-02 | Outpatient (CLI) | payer MEDICARE, OTHER | LOC: PLAB 08:19 | PROVIDERS: ATTEND Urology | DX: E29.1 Testicular hypofunction (principal); N40.1 Benign prostatic hyperplasia with lower urinary tract symptoms | CPT/HCPCS: 36415; 84153; 84403; 85014 ==